=== PATIENT | female | born 1970 ===

== ENCOUNTER → 2023-06-11 | Day surgery (SDC) | payer BC ==
--- NOTE | 2023-06-11 12:10 | RAD REPORT ---
EXAM DESCRIPTION: US - Breast Core BX w/US Guidance - 06/11/2023 10:40 am CLINICAL HISTORY: ICD R 92.8 /N63.10 COMPARISON: Outside ultrasound TECHNIQUE: The risks, benefits alternatives to the procedure were explained to the patient and infor med consent obtained. The patient was told him that there is an increased risk of breast implant rupt ure as the mass abuts the implant. Skin, subcutaneous and breast tissues anesthetized with lidocaine. Under sonographic guidance, 17 gauge needle placed into the mass within the upper-outer quadrant righ t breast. Four 18 gauge needle passes were then obtained through this. 2 centimeter core specimens ob tained Tissue given to pathology. Patient experienced no immediate complication IMPRESSION: Core biopsies right breast mass
== END ==
LOC: DS 09:34
PROVIDERS: ATTEND Physician Assistant
DX: C50.911 Malignant neoplasm of unspecified site of right female breast (principal); Z17.0 Estrogen receptor positive status [ER+]
CPT/HCPCS: 19083; 88305

== ENCOUNTER 2024-06-01 06:19 | Emergency (ER) | payer BC, OTHER ==
--- OUTSIDE RECORDS SUMMARY | 2024-06-01 06:26 | XMS REPORT | Clinical Summary ---
Author Name Unknown Organization [facility] [place] Address [address] [place] [address] Care Team Providers Care Boot Liner Maker Name Role Phone Yesenia Tracy MD Primary Care Prov ider Cheyanne Crawford MD Unavailable [phone] [facility] Unavailable [phone] MerRodolfo vásquez MD Unavailable [phone] Allergies No known active allergies Medications Medication Sig Dispensed Refills Start Date End Date Status zolpidem (AMBIEN CR) 12.5 mg CR tablet Take 1 tablet (12.5 mg) by mouth at bedtime. Active buPROPion (WELLBUTRIN XL) 150 mg 24 hr tablet Take 1 tablet (150 mg) by mouth twice daily. Active ALPRAZolam (XANAX) 0.5 mg tablet Take 1 tablet (0.5 mg) by mouth 3 (three) times a day. 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 50 tablet 2 3 Active albuterol (VENTOLIN HFA,PROAIR HFA) 90 mcg/puff inhaler Inhale 1-2 puffs by mouth every 4 (four) hours as needed. 3 Active 25/iron fum/folic/dha (-1 ORAL) Take 1 tablet by mouth daily. Garden of life Active thymol/chloroph yllin (CHLOROPHYLL ORAL) Take 1 Dose by mouth daily. 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 40 tablet 4 Active gabapentin (NEURONTIN) 300 mg capsule Take 1 capsule (300 mg) by mouth 3 (three) times a day. 4 Active escitalopram (LEXAPRO) 10 mg tablet Take 1 tablet (10 mg) by mouth daily. Active cyclobenzaprine (FLEXERIL) 10 mg tablet Take 1 tablet (10 mg) by mouth 3 (three) times a day. 4 Active cyanocobalamin, vitamin B-12, 1,000 mcg cap 1 tablet Orally Once a day Active b complex vitamins tablet Take 1 tablet by mouth daily. Active lidocaine (XYLOCAINE) 20 mg/mL (2%) viscous solutionIndicat ions:Infiltrati ng duct carcinoma of right female breast Swish and swallow 10 mL every 8 (eight) hours as needed (sore throat). 100 mL 1 4 Active Additional Information Patient not taking.Reported on 05/25/2024 xyloxylin oral suspension (AMB-CMPD)Indic ations:Infiltra ting duct carcinoma of right female breast Swish and swallow 15 mL 4 (four) times a day before meals and nightly. 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 3 tabs QAM and 3 tabs QPM x 14 days, then none x 7 days. 84 tablet 2 4 Active Effexor XR 75 mg 24 hr capsule Take 1 capsule every day by oral route for 90 days. 3 01/01/20 24 Discontinued(Dis continued by another clinician) fluticasone propionate-salm eterol (ADVAIR) 250 mcg-50 mcg/inhalation diskus inhaler Inhale 1 puff by mouth twice daily. 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 30 tablet 4 02/21/20 24 Discontinued(Reo rder) cefadroxil (DURICEF) 500 mg capsuleIndicati ons:Acquired absence of bilateral breasts Take 1 capsule (500 mg) by mouth twice daily for 14 days. 28 capsule 4 03/13/20 24 cefadroxil (DURICEF) 500 mg capsuleIndicati ons:Acquired absence of right breast and nipple,Infiltra ting duct carcinoma of right female breast Take 1 capsule (500 mg) by mouth twice daily for 7 days. 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 (Primary Dx) 05/26/2024 Orders Only [facility] [place] - Medical Oncology [address] [place] [address], 5th [place] [address] Kaylie Yu, PharmD 05/25/2024 8:30 AM CDT Clinical Support MD [facility] in [place] - Radiation Oncology [address] [place] [address] [address] [place] [address] Estrellita Stroud MD 05/25/2024 Orders Only MD [facility] [place] - Medical Oncology [address] [place] [address] [address] [place] [address] Paul Merritt, BALLISTICS TEACHER 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 (Primary Dx) 05/25/2024 Travel 05/19/2024 Orders Only MD [facility] [place] - Radiation Oncology [address] [place] [address] [address] [place] [address] Lillian Xiao APRN 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 (Primary Dx) 05/19/2024 Travel 05/18/2024 8:30 AM CDT Clinical Support MD [facility] [place] - Radiation Oncology [address] [place] [address] [address] [place] [address] Estrellita Stroud MD Shah, Shalin, MD 05/15/2024 Travel 05/12/2024 8:45 AM CDT Infusion MD [facility] [place] - Infusion [address] [place] [address] [address] [place] [address] Paul Merritt, Alisson Evans, RN 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 (Primary Dx) 05/12/2024 7:30 AM CDT Clinical Support MD [facility] [place] - Infusion [address] [place] [address] [address] [place] [address] Yesenia Tracy MD Mendoza, Gina B, KAMERON 05/11/2024 8:30 AM CDT Clinical Support MD [facility] [place] - Radiation Oncology [address] [place] [address] Estrellita Stroud MD 05/11/2024 Travel 05/07/2024 8:30 AM CDT Clinical Support MD [facility] [place] - Radiation Oncology [address] [place] [address] Estrellita Stroud MD 05/07/2024 [facility] [address] [facility] Main [facility], 6th [place] [address] Letty Hawkins PA 05/06/2024 2:30 PM CDT Clinical Support MD [facility] [address] 4th [place] [address] Yesenia Tracy MD 05/06/2024 12:00 PM CDT Telemedicine Endocrine Center [address] [facility] Main Bl, 6th [place] [address] Letty Hawkins PA 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] (Primary Dx) 05/06/2024 Travel 05/06/2024 Telephone MD [facility] [place] - Genetics [address] [place] [address] [address] [place] [address] Nivia Smith I Genetic Testing 05/01/2024 Travel 04/29/2024 Orders Only MD [facility] [place] - Breast Medical Oncology [address] [place] [address] [address] [place] [address] Amber Henry MD 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 (Primary Dx); Fatigue; Antineoplastic chemotherapy induced anemia 04/21/2024 7:30 AM CDT Clinical Support MD [facility] [place] [facility] Infusion [address] [place] [address] [address] [place] [address] Yesenia Tracy MD Momin, Romina A, KAMERON 04/21/2024 Orders Only MD [facility] [place] - Breast Medical Oncology [address] [place] [address] [address] [place] [address] Melissa Farrar PA 04/21/2024 Orders Only MD [facility] [place] - Breast Medical Oncology [address] [place] [address] [address] [place] [address] Amber Henry MD 04/21/2024 Travel 04/20/2024 8:30 AM CDT Clinical Support MD [facility] [place] - Radiation Oncology [address] [place] [address] Estrellita Stroud MD 04/20/2024 Travel 04/17/2024 Travel 04/16/2024 Orders Only Breast Center - Medical Oncology [address] [facility], 5th [place] [address] Amber Henry MD 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 (Primary Dx) 04/16/2024 Travel 04/15/2024 Travel 04/14/2024 Travel 04/13/2024 8:30 AM CDT Clinical Support MD [facility] [place] - Radiation Oncology [address] [place] [address] Estrellita Stroud MD 04/13/2024 Travel 04/07/2024 6:00 AM CDT - 04/07/2024 11:59 PM CDT Hospital Encounter [facility] [address] [place] [address] Main Bldg near Elevator [place] [id number] Yesenia Tracy MD Discharge Disposition: Home 04/06/2024 6:00 AM CDT - 04/06/2024 11:59 PM CDT Hospital Encounter Radiation Treatment Center [facility] Main Bldg near Elevator [place] [id number] Yesenia Tracy MD Discharge Disposition: Home 04/06/2024 Documentation MD [facility] [place] - Radiation Oncology [address] [place] [address] Estrellita Stroud MD 04/06/2024 Travel 04/03/2024 Documentation MD [facility] [place] - Radiation Oncology [address] [place] [address] [address] [place] [address] Estrellita Stroud MD 03/31/2024 2:00 PM CDT Infusion MD [facility] [place] [facility] Infusion [address] [place] [address] [address] [place] [address] Erik Torres MD Russell, Laura W, RN 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 (Primary Dx) 03/31/2024 1:30 PM CDT Clinical Support MD [facility] [place] [facility] Infusion [address] [place] [address] [address] [place] [address] Yesenia Tracy MD John, Beena, KAMERON 03/31/2024 Orders Only MD [facility] [place] - Medical Oncology [address] [place] [address] [address] [place] [address] Paul Merritt APRN 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 (Primary Dx) 03/31/2024 Travel 03/31/2024 Orders Only MD [facility] [place] - Medical Oncology [address] [place] [address] [address] [place] [address] Kecia Martinez, RN 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 (Primary Dx) 03/27/2024 8:30 AM CDT [facility] [address] [place] [address], 5th [place] [address] Rodolfo Felix MD Acquired absence of right breast and nipple; 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 03/27/2024 Documentation MD [facility] in [place] - Radiation Oncology [address] [place] [address] [address] [place] [address] Estrellita Stroud MD 03/27/2024 Travel 03/24/2024 9:40 AM CDT Follow-Up MD [facility] [place] - Breast Medical Oncology [address] [place] [address] [address] [place] [address] Amber Henry MD 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 (Primary Dx); Anxiety state; Fatigue; 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; Antineoplastic chemotherapy induced anemia 03/24/2024 9:00 AM CDT Clinical Support MD [facility] [place] [facility] Infusion [address] [place] [address] [address] [place] [address] Yesenia Tracy MD Jones, Ashley D, RN 03/24/2024 Travel 03/19/2024 11:00 AM CDT Ancillary Procedure MD [facility] [place] [facility] Radiation Oncology [address] [place] [address] Estrellita Stroud MD 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 03/19/2024 Documentation MD [facility] [place] [facility] Radiation Oncology [address] [place] [address] Estrellita Stroud MD 03/19/2024 Documentation MD [facility] [place] [facility] Radiation Oncology [address] [place] [address] Estrellita Stroud MD 03/19/2024 Documentation MD [facility] [place] [facility] Radiation Oncology [address] [place] [address] Estrellita Stroud MD 03/19/2024 Travel 03/18/2024 11:15 AM CDT [facility]Up [facility] [address] [place] [address], 5th [place] [address] Rodolfo Felix MD Acquired absence of right breast and nipple (Primary Dx); 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 03/18/2024 9:00 AM CDT Consult MD [facility] [place] [facility] Radiation Oncology [address] [place] [address] Estrellita Stroud MD 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 03/18/2024 Travel 03/17/2024 Orders Only MD [facility] [place] [facility] Radiation Oncology [address] [place] [address] Estrellita Stroud MD 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 (Primary Dx) 03/13/2024 Orders Only [facility] [address] [facility], 5th [place] [address] William Galvan PA 03/12/2024 11:00 AM CDT Telemedicine MD [facility] - Breast Medical Oncology [address] 3[address] [place] [address] Erik Torres MD 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 (Primary Dx) 03/10/2024 9:00 AM CDT Office Visit MD [facility] [place] - Breast Surgery Oncology [address] [place] [address] Yesenia Tracy MD 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 03/10/2024 Travel 03/06/2024 10:00 AM CDT Office Visit [facility] [address] [place] [address], 5th [place] [address] Rodolfo Felix MD Acquired absence of right breast (Primary Dx) 03/06/2024 Orders Only MD [facility] [place] - Breast Surgery Oncology [address] [place] [address] Little Piña PA 03/06/2024 Travel 02/27/2024 2:35 PM CDT Anesthesia Event MAIN OR [address] [place] [address] Sunni Hopson MD Heir, Jagtar Singh, 02/27/2024 1:45 PM CDT - 02/27/2024 11:59 PM CDT Hospital Encounter Breast Imaging [address] [facility], 5th [place] [address] Little Piña PA Discharge Disposition: Home 02/27/2024 11:50 AM CDT - 02/27/2024 7:50 PM CDT Surgery MAIN OR [address] [place] [address] Yesenia Tracy MD SKIN SPARING TOTAL MASTECTOMY 02/27/2024 9:30 AM CDT - 02/28/2024 2:03 PM CDT Hospital Encounter MAIN PACU [address] [facility] Main [facility], 5th [place] [address] Yesenia Tracy MD Acquired absence of bilateral breasts (Primary Dx); 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 Discharge Disposition: Home 02/27/2024 Travel 02/21/2024 Orders Only Endocrine Center [address] [place] [address] Main [facility], 6th [place] [address] Letty Hawkins PA 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 02/20/2024 Orders Only MD [facility] [place] - Medical Oncology [address] [place] [address] Paul Merritt APRN 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 02/18/2024 Refill MD [facility] [place] - Breast Medical Oncology [address] [place] [address] [address] [place] [address] Paul Merritt APRN 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 02/15/2024 Refill MD [facility] [place] - Breast Medical Oncology [address] [place] [address] [address] [place] [address] Paul Merritt APRN 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 02/11/2024 9:23 AM CDT Anesthesia Event [facility] [address] [place] [address], 6th [place] [address] Sandra Multani APRN 02/10/2024 Travel 02/05/2024 4:00 PM CDT Telemedicine Endocrine [facility] [address] [place] [address] Main [facility], 6th [place] [address] Marc Josue APRN Williams, Jessica, PA 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] (Primary Dx); 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 02/05/2024 11:00 AM CDT POEM Appointments [facility] [address] [place] [address] Main [facility], 6th [place] [address] Little Piña PA 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 02/05/2024 9:54 AM CDT - 02/05/2024 11:59 PM CDT Hospital Encounter Diagnostic Laboratory Center [address] [place] [address] Erik Torres MD 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 Discharge Disposition: Home 02/05/2024 9:30 AM CDT Consult [facility] [address] [facility], 5th [place] [address] Rodolfo Felix MD 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 02/05/2024 Travel 01/29/2024 Telephone MD [facility] Breast Medical Oncology [address] [address] [facility] 3rd [place] [address] Erik Torres MD 01/29/2024 Orders Only MD [facility] - Breast Medical Oncology [address] [address] [facility] 3rd [place] [address] Erik Torres MD 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 (Primary Dx) 01/28/2024 1:30 PM CDT Office Visit MD [facility] [place] - Breast Surgery Oncology [address] [place] [address] Yesenia Tracy MD 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 01/28/2024 Travel 01/27/2024 2:00 PM CDT Ancillary Procedure Diagnostic Imaging in [facility] [address] [facility] [address], [address] [place] [address] Yesenia Tracy MD 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 01/27/2024 9:30 AM CDT Ancillary Procedure Diagnostic Imaging in [facility] [address] [facility] [address], [address] [place] [address] Yesenia Tracy MD 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 01/01/2024 7:37 AM BOBBIN COLLECTOR - 01/01/2024 11:59 PM BOBBIN COLLECTOR Hospital Encounter Diagnostic Laboratory Center [address] [place] [address], [place] [address] Brenda Farrar, BALLISTICS TEACHER Encounter for screening for other suspected endocrine disorder Discharge Disposition: Home 01/01/2024 Travel 12/25/2023 3:30 PM BOBBIN COLLECTOR Clinical [place] [address] Yesenia Tracy MD John, Beena, RN 12/25/2023 9:15 AM BOBBIN COLLECTOR Infusion MD [facility] [place] - Infusion [address] [place] [address] [address] [place] [address] Amber Henry MD Castro, Sheila O, RN 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 (Primary Dx) 12/25/2023 8:40 AM BOBBIN COLLECTOR Follow-Up MD [facility] [place] - Breast Medical Oncology [address] [place] [address] Amber Henry MD 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 (Primary Dx); Fatigue; Hypothyroidism, not otherwise specified; Anxiety state 12/25/2023 Orders Only Endocrine Center [facility], 6th [place] [address] Brenda Farrar, BALLISTICS TEACHER Encounter for screening for other suspected endocrine disorder (Primary Dx) 12/25/2023 Travel 12/20/2023 Orders Only MD [facility] [place] - Medical Oncology [address] [place] [address] Paul Merritt APRN 12/04/2023 10:00 AM BOBBIN COLLECTOR Infusion MD [facility] in [place] - [address] [address] Amber Henry MD Jacob, Saly, RN 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 (Primary Dx) 12/04/2023 9:40 AM BOBBIN COLLECTOR Follow-Up MD [facility] [place] - Breast Medical Oncology [address] [place] [address] Amber Henry MD 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 12/04/2023 8:30 AM BOBBIN COLLECTOR Clinical Support MD [facility] [place] - Infusion [address] [place] [address] Yesenia Tracy MD Villaruel, Rosario L, RN 12/04/2023 Travel 11/13/2023 3:30 PM BOBBIN COLLECTOR Clinical Support MD [facility] [place] - Infusion [address] [place] [address] Yesenia Tracy MD Jones, Ashley D, RN 11/13/2023 2:15 PM BOBBIN COLLECTOR Infusion MD [facility] [place] - Infusion [address] [place] [address] Paul Merritt APRN Eliff, Melinda S, RN 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 Medical Oncology [address] [place] [address] Paul Merritt APRN 11/06/2023 Orders Only Breast Center - Medical Oncology [address] [facility], 5th [place] [address] Solomon Montes De Oca, Erin 11/05/2023 12:30 PM BOBBIN COLLECTOR Infusion MD [facility] [place] - Infusion [address] [place] [address] Paul Merritt APRN Pakeltis, Melody J, RN Febrile neutropenia (Primary Dx) 11/05/2023 8:40 AM BOBBIN COLLECTOR Follow-Up MD [facility] Medical Oncology [address] [place] [address] Amber Henry MD 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 (Primary Dx); Febrile neutropenia; Fatigue 11/05/2023 Travel 11/04/2023 6:40 PM BOBBIN COLLECTOR - 11/04/2023 8:50 PM BOBBIN COLLECTOR Emergency [facility], 1st Floor near [place] [place] [address] Tony Culver MD Infiltrating duct carcinoma of breast <Right side> (Primary Dx); Cough Discharge Disposition: Home 11/04/2023 10:14 AM BOBBIN COLLECTOR - 11/04/2023 6:39 PM BOBBIN COLLECTOR Hospital Encounter [facility] [address] [facility] Main Bldg, [place] [address] Paul Merritt APRN 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 Discharge Disposition: Home 11/04/2023 9:34 AM BOBBIN COLLECTOR - 11/04/2023 10:13 AM BOBBIN COLLECTOR Hospital Encounter [facility] [address] [facility] Main dg, Elevator A [place] [id number] Melissa Farrar PA 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 Discharge Disposition: Home 11/04/2023 8:47 AM BOBBIN COLLECTOR - 11/04/2023 9:33 AM BOBBIN COLLECTOR Hospital Encounter Cardiopulmonary Center [address] [facility] Main dg, 6th Floor Elevator C [place] [id number] Amber Henry MD 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 Discharge Disposition: Home 11/04/2023 Telephone MD [facility] [place] - Medical Oncology [address] [place] [address] 200 [place] [address] Paul Merritt APRN 11/04/2023 Orders Only MD [facility] [place] - Medical Oncology [address] [place] [address] 200 [place] [address] Paul Merritt APRN Febrile neutropenia (Primary Dx) 11/04/2023 Travel 10/30/2023 Orders Only MD [facility] [place] - Breast Surgery Oncology [address] [place] [address] Little Piña PA 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 (Primary Dx) 10/30/2023 Prep for Surgery MD [facility] [place] - Breast Surgery Oncology [address] [place] [address] Little Piña PA 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 (Primary Dx) 10/25/2023 1:30 PM BOBBIN COLLECTOR Infusion MD [facility] [place] - Infusion [address] [place] [address] 200 [place] [address] Paul Merritt APRN Rodil, Virginia C, RN 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 (Primary Dx) 10/25/2023 11:30 AM BOBBIN COLLECTOR Clinical Support MD [facility] [place] - Infusion [address] [facility] [address] [place] [address] Yesenia Tracy MD Venegas, Carrie A, RN 10/25/2023 11:00 AM BOBBIN COLLECTOR Follow-Up MD [facility] [place] - Breast Surgery Oncology [address] [place] [address] Yesenia Tracy MD 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 10/25/2023 8:00 AM BOBBIN COLLECTOR Ancillary Procedure Diagnostic Imaging in [facility] [address] [place] [address] 1, [address] [place] [address] 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 10/25/2023 Orders Only MD [facility] [place] - Breast Medical Oncology [address] [place] [address] 200 [place] [address] Melissa Farrar PA 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 (Primary Dx) 10/25/2023 Travel 10/18/2023 9:30 AM BOBBIN COLLECTOR Infusion MD [facility] [place] - Infusion [facility] [address] [address] Paul Merritt APRN 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 (Primary Dx) 10/18/2023 Travel 10/11/2023 9:00 AM BOBBIN COLLECTOR Infusion MD [facility] [place] - Infusion [facility] [address] [address] Paul Merritt APRN 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 (Primary Dx) 10/11/2023 8:40 AM BOBBIN COLLECTOR Telemedicine MD [facility] [place] - Breast Medical Oncology [address] [place] [address] [address] [place] [address] Amber Henry MD 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 (Primary Dx); Fatigue; Anxiety state 10/11/2023 Orders Only MD [facility] [place] - Breast Surgery Oncology [address] [place] [address] Little Piña PA 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 (Primary Dx) 10/11/2023 Orders Only Breast Center - Medical Oncology [address] [facility], 5th [place] [address] Kirk Zeng MD 10/11/2023 Travel 10/04/2023 12:30 PM BOBBIN COLLECTOR Infusion MD Manuel [place] - Infusion [address] [place] [address] Paul Merritt APRN 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 (Primary Dx) 10/04/2023 Travel 09/30/2023 Orders Only MD [facility] [place] - Medical Oncology [address] [facility] [address] [place] [address] Pual Merritt APRN 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 (Primary Dx) 09/30/2023 Orders Only MD [facility] [place] - Breast Medical Oncology [address] [facility] [address] [place] [address] Amber Henry MD 09/27/2023 10:00 AM BOBBIN COLLECTOR Infusion MD Manuel [place] - Infusion [address] [place] [address] Paul Merritt APRN 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 (Primary Dx) 09/27/2023 Travel 09/23/2023 3:30 PM BOBBIN COLLECTOR Clinical Support MD [facility] [place] - Infusion [address] [place] [address] Yesenia Tracy MD 09/23/2023 Travel 09/23/2023 Orders Only MD [facility] [place] - Medical Oncology [address] [place] [address] 200 [place] [address] Paul Merritt APRN 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 (Primary Dx) 09/20/2023 7:19 AM BOBBIN COLLECTOR - 09/20/2023 11:59 PM BOBBIN COLLECTOR Hospital Encounter Ambulatory Treatment Center - Main Building [address] [facility], 2nd Floor, [place] [address] Paul Merritt APRN Cao, Thuyhang C, RN 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 Discharge Disposition: Home 09/20/2023 6:45 AM BOBBIN COLLECTOR - 09/20/2023 7:18 AM BOBBIN COLLECTOR Hospital Encounter Diagnostic Laboratory Center [facility] [address], [place] [address] Paul Merritt APRN 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 Discharge Disposition: Home 09/20/2023 Refill MD [facility] [place] - Medical Oncology [address] [place] [address] Paul Merritt APRN 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 09/20/2023 Travel 09/13/2023 3:00 PM BOBBIN COLLECTOR Clinical Support MD [facility] [place] - Infusion [address] [place] [address] Yesenia Tracy MD Russell, Laura W RN 09/13/2023 1:30 PM BOBBIN COLLECTOR Infusion MD [facility] [place] - Infusion [address] [place] [address] 200 [place] [address] Paul Merritt APRN Jones, Ashley D, RN 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 (Primary Dx) 09/13/2023 11:40 AM BOBBIN COLLECTOR Follow-Up MD [facility] [place] - Breast Medical Oncology [address] [place] [address] Amber Henry MD 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 (Primary Dx); Anxiety state; Fatigue 09/13/2023 Travel 09/12/2023 Orders Only MD [facility] [place] - Medical Oncology [address] [place] [address] 200 [place] [address] Paul Merritt APRN 09/06/2023 10:15 AM BOBBIN COLLECTOR Infusion MD [facility] [place] - Infusion [address] [place] [address] Amber Henry MD 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 (Primary Dx) 09/06/2023 Travel 2023 9:45 AM CDT Infusion MD [place] - Infusion [address] [place] [address] Amber Henry MD 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 (Primary Dx) 2023 Travel 08/23/2023 11:30 AM CDT Infusion MD [facility] in [facility] [address] [place] [address] 200 [place] [address] Amber Henry MD Landicho, Michael S, RN 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 (Primary Dx) 08/23/2023 9:40 AM CDT Follow-Up MD [facility] [place] - Breast Medical Oncology [address] [place] [address] 200 [place] [address] Amber Henry MD 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 (Primary Dx) 08/23/2023 8:30 AM CDT Clinical Support MD [facility] [place] - [address] [place] [address] Yesenia Tracy MD Villaruel, Rosario L, RN 08/23/2023 Travel 08/18/2023 Telephone [facility] KRISTEN PHYSICIAN [address] [place] [address] Janny Reynolds, plant operations vice president Call 08/16/2023 10:00 AM CDT Infusion MD Manuel [place] - Infusion [address] [address] Paul Merritt APRN 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 (Primary Dx) 08/16/2023 Orders Only MD [facility] [place] - Breast Medical Oncology [address] [place] [address] Amber Henry MD 08/16/2023 Orders Only MD [facility] [place] - Medical Oncology [address] [place] [address] 200 [place] [address] Paul Merritt APRN 08/16/2023 Travel 08/15/2023 2:30 PM CDT - 08/15/2023 11:59 PM CDT Hospital Encounter MD [facility] [address] [place] [address] Yesenia Tracy MD Parrish, Jennifer, PA-C Surgical incision wound of skin (Primary Dx) Discharge Disposition: Home 08/12/2023 12:30 PM CDT Clinical Support MD [facility] [place] - Genetics [address] [facility] 200 [place] [address] Yesenia Tracy MD Shilbauer, Rachael I 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 requested another call tomorrow./August 05, 2023 at 2:42 PM//Kelli Jarvis/Kirsten smallwood is having problems opening the text and the email. 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 (Primary Dx) 08/06/2023 11:00 AM CDT Nutrition Clinical Nutrition For your Nutrition appointment location directions please call: Yesenia Tracy MD Rodgers, Beverly B, DEX 08/04/2023 Telephone [facility] PHYSICIAN [address] [place] [address] Diana Rodriguez, plant operations vice president Call 08/02/2023 10:30 AM CDT Infusion MD [facility] [place] - Infusion [address] [place] [address] Amber Henry MD 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 (Primary Dx) 08/02/2023 Orders Only MD [facility] [place] - Breast Medical Oncology [address] [place] [address] 200 [place] [address] Amber Henry MD 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 (Primary Dx) 08/02/2023 Orders Only MD [facility] [place] - Medical Oncology [address] [place] [address] Paul Merritt APRN 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 (Primary Dx) 08/02/2023 Travel 08/01/2023 8:49 AM CDT Anesthesia Event [facility] [address] [place] [address] Jarret Manuel MD Foltermann, Stephanie L, CRNA 08/01/2023 6:46 AM CDT - 08/01/2023 11:59 PM CDT Hospital Encounter [facility] [address] [place] [address] Paul Merritt APRN Foltermann, Stephanie L, CRNA Idowu, Olakunle, MD Lu, Thomas, MD 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 Discharge Disposition: Home 08/01/2023 Travel 07/31/2023 11:59 PM CDT Anesthesia Event [facility] [address] [place] [address], 6th [place] [address] Tamara Madrid APRN 07/31/2023 4:30 PM CDT POEM Appointments [facility] [address] [place] [address], 6th [place] [address] Kimmie Mcdowell PA Encounter for other preprocedural examination (Primary Dx) 07/31/2023 10:06 AM CDT - 07/31/2023 11:59 PM CDT Hospital Encounter MD [facility] [address] [place] [address] Yesenia Tracy MD Hoang, Bao Tran, PA 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 (Primary Dx); Encounter for preprocedural examination Discharge Disposition: Home 07/31/2023 Orders Only MD [facility] [place] - Medical Oncology [address] [place] [address] Paul Merritt APRN 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 (Primary Dx) 07/31/2023 Travel 07/30/2023 [facility] MD [facility] [address] [place] [address] Noah Garcia MA 07/26/2023 12:30 PM CDT - 07/26/2023 11:59 PM CDT Hospital Encounter Cardiopulmonary Center [address] [place] [address], 6th [place] [address] Paul Merritt APRN 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 Discharge Disposition: Home 07/26/2023 Travel 07/23/2023 11:40 AM CDT Telephone MD [facility] [place] - Breast Medical Oncology [address] [place] [address] Amber Henry MD 07/23/2023 Orders Only MD [facility] [place] - Medical Oncology [address] [place] [address] Paul Merritt APRN 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 (Primary Dx) 07/23/2023 Orders Only MD [facility] [place] - Breast Medical Oncology [address] [place] [address] Amber Henry MD 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 (Primary Dx) 07/22/2023 Orders Only Main Interventional Radiology [address] [facility], 3rd [place] [address] Kimmie Mcdowell PA 07/18/2023 Orders Only MD [facility] [place] - Medical Oncology [address] [place] [address] Paul Merritt APRN 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 (Primary Dx) 07/17/2023 12:00 PM CDT Consult MD [facility] [place] - [facility] Medical Oncology [address] [place] [address] Dalia Baldwin MD Nwosu-Iheme, Adaeze, MD 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 (Primary Dx); Anxiety state; Fatigue; Tobacco dependence caused by cigarettes 07/17/2023 Travel 07/15/2023 Documentation MD [facility] [place] - Breast Surgery Oncology [address] [place] [address] Yesenia Tracy MD 07/11/2023 2:30 PM CDT Ancillary Procedure MD Manuel [address] [address] Little Piña PA 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 07/11/2023 Travel 07/10/2023 Documentation MD [facility] [address] [address] [facility] Mike RN 07/09/2023 1:00 PM CDT Office Visit MD [facility] [place] - Breast Surgery Oncology [address] [place] [address] Yesenia Tracy MD 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 (Primary Dx) 07/09/2023 12:00 PM CDT NPR [facility] PATIENT ACCESS Yesenia Tracy MD 07/09/2023 Travel 07/08/2023 12:00 PM CDT Ancillary Procedure Diagnostic Imaging in [address], [address] [place] [address] Mammography abnormal 07/08/2023 9:15 AM CDT Ancillary Procedure Diagnostic Imaging in [address], [address] [place] [address] Little Piña, PA Mammography abnormal 07/08/2023 8:15 AM CDT Ancillary Procedure Diagnostic Imaging in [address], [address] [place] [address] Little Piña, CHICO Mammography abnormal 06/28/2023 2:32 PM CDT - 06/28/2023 11:59 PM CDT Hospital Encounter Sarbjit Echeverria MD Discharge Disposition: Home 06/26/2023 12:24 PM CDT - 06/26/2023 11:59 PM CDT Hospital Encounter Sarbjit Echeverria MD Discharge Disposition: Home 06/21/2023 8:15 PM CDT Ancillary Procedure [facility] [address] [place] [address] Yesenia Tracy MD Cancer 06/21/2023 8:10 PM CDT Ancillary Procedure [facility] [address] [place] [address] Yesenia Tracy MD Cancer 06/21/2023 8:05 PM CDT Ancillary Procedure [facility] [address] [place], [place] [id number] Yesenia Tracy MD Cancer 06/21/2023 8:00 PM CDT Ancillary Procedure [facility] [address] [place] [address] Yesenia Tracy MD Cancer 06/21/2023 Lab Requisition [facility] Andrzej Granda MD Witson, Anne S., MD 06/18/2023 Orders Only MD [facility] [place] - Breast Surgery Oncology [address] [place] [address] Little Piña PA Mammography abnormal (Primary Dx) after 06/02/2023 Surgical History Surgery Date Site/Laterality Comments AUGMENTATION MAMMAPLASTY W/PROSTHETIC IMPLANT 10/28/2018 - 10/27/2019 Bilateral DENTAL SURGERY all teeth were removed and replaced with dentures BUNIONECTOMY 10/28/1999 - 10/27/2000 Bilateral GA MASTECTOMY SIMPLE COMPLETE 02/27/2024 Breast/Right Procedure: SKIN SPARING TOTAL MASTECTOMY; Surgeon: Yesenia Tracy MD; Location: MAIN OR; Service: BREAST Medical devices from this surgery are in the Medical Devices section. GA AXILLARY LYMPHADENECTOMY COMPLETE 02/27/2024 Axilla/Right Procedure: AXILLARY LYMPHADENECTOMY; Surgeon: Yesenia Tracy MD; Location: MAIN OR; Service: BREAST Medical devices from this surgery are in the Medical Devices section. GA TISSUE GEOLOGY ASSOCIATE PLACEMENT BREAST RECONSTRUCTION 02/27/2024 Breast/Right Procedure: RECONSTRUCTION OF BREAST WITH TISSUE GEOLOGY ASSOCIATE; Surgeon: Rodolfo Felix MD; Location: MAIN OR; Service: PLS - PLASTIC SURGERY Medical devices from this surgery are in the Medical Devices section. GA REPAIR BLOOD VESSEL DIRECT UPPER EXTREMITY 02/27/2024 Axilla/Right Procedure: SUTURE OR PATCH CLOSURE OF BLOOD VESSEL OF UPPER EXTREMITY; Surgeon: Rodolfo Felix MD; Location: MAIN OR; Service: PLS - PLASTIC SURGERY Medical devices from this surgery are in the Medical Devices section. Medical History Medical History Date Comments Menopause 07/12/2014 About 9 years ag o Anxiety Maybe started in my 20's Malignant tumor of breast 06/14/2023 When i was told i had cancer Family History Medical History Relation Name Comments Hypothyroidism Cousin Prostate cancer Maternal Grandfather Colon cancer Maternal Uncle 1 Prostate cancer Maternal Uncle 2 Relation Name Status Comments Cousin Alive Father No contact Half-Brother 1 (Age 30s) Half-Brother 2 Alive Half-Sister 1 (Age 50s) Half-Sister 2 Alive Half-Sister 3 Alive Maternal Aunt 1 Alive Maternal Aunt 2 Alive Maternal Aunt 3 Alive Maternal Aunt 4 Alive Maternal Aunt 5 Alive Maternal Grandfather (Age 80s) Maternal Grandmother (Age 80s) d . natural causes Maternal Uncle 1 Alive Maternal Uncle 2 Alive Maternal Uncle 3 Alive Maternal Uncle 4 Alive Maternal Uncle 5 Alive Maternal Uncle 6 Alive Mother Alive maybe LISSETH/BSO Social History Tobacco Use Types Packs/Day Years Used Date Smoking Tobacco: Former Cigarettes 0.5 37.9 S tarted: 06/28/1986 Passive Smoke Exposure: Past Smokeless Tobacco: Never Tobacco Cessation:Ready to Q uit: Not Asked; Counseling Given: Not Answered Comments:Smoked since i was 16 Alcohol Use Standard Drinks/Week Comments Yes 49 (1 standard drink = 0.6 oz pu re alcohol) Sex and Gender Information Value Date Recorded Sex Assigned at Female 06/19/2023 6:26 PM CDT Gender Identity Female 06/19/2023 6:26 PM CDT Sexual Orientation Straight 06/19/2023 6: 26 PM CDT Job Start Date Occupation Industry Not on file Not on file Not on file Obstetrics History Para Term AB IAB SAB Ectopic Multiple Livin g Live Births 1 1 Date Outcome GA Total Labor Labor/2nd/3rd Weight Sex Type Anes PTL Kiya A1 A5 Name Clin AB Comments A1 Menarche: 14 yo OCP 20 yrs HRT: None Menopausal Last menses @ 44 yo Last Filed Vital Signs Vital Sign Reading Time Taken Comments Blood Pressure 106/82 05/26/2024 8:28 AM CDT Pulse 104 05/26/2024 8:28 AM CDT Temperature 37 C (98.6 F) 05/26/2024 8:28 AM CDT Respiratory Rate 18 05/26/2024 8:28 AM CDT Oxygen Saturation 100% 04/21/2024 8:56 AM CDT Inhaled Oxygen Concentration - - Weight 45.9 kg (101 lb 3.1 oz) 05/26/2024 8:28 A M CDT Height 152.5 cm (5' 0.04") 02/27/2024 10:59 PM C DT Body Mass Index 19.74 02/27/2024 10:59 PM CDT Plan of Treatment Upcoming Encounters Date Type Department Care Team (Late st Contact Info) Description 06/02/2024 9:30 AM CDT Lab MD [facility] [place] - Diagnostic Laboratory Center [address] [place] [address] 201 [place] [address] Utp, Joma, BALLISTICS TEACHER [address] [place] [address] [email or web address] 06/02/2024 10:15 AM CDT Infusion MD [facility] in [place] - Infusion [address] [place] [address] 200 [place] [address] [facility], Cierrama, BALLISTICS TEACHER [address] [place] [address] [email or web address] 06/23/2024 9:15 AM CDT Lab MD Jackson [facility] Diagnostic Laboratory Center [address] [place] [address] 201 [place] [address] [facility] Center[facility] appiah, BALLISTICS TEACHER [address] [place] [address] [email or web address] 06/23/2024 9:40 AM CDT Follow-Up MD [facility] in [place] - Breast Medical Oncology [address] [place] [address] 200 [place] [address] Amber Henry MD [address] [place] [address] [email or web address] 06/23/2024 10:15 AM CDT Infusion MD [facility] [place] - Infusion [address] [place] [address] [address] [place] [address] [facility] CenterCierra appiahma, BALLISTICS TEACHER [address] [place] [address] [email or web address] 07/14/2024 9:00 AM CDT Lab MD [facility] Diagnostic Laboratory Center [address] [place] [address] 201 [place] [address] Paul Merritt, BALLISTICS TEACHER [address] [place] [address] [email or web address] 07/14/2024 9:40 AM CDT Follow-Up MD [facility] [place] - Breast Medical Oncology [address] [facility] [address] [place] [address] Amber Henry MD [address] [place] [address] [email or web address] 07/14/2024 10:15 AM CDT Infusion MD [facility] [place] - Infusion [address] [facility] [address] [place] [address] Paul Merritt, BALLISTICS TEACHER [address] [place] [address] [email or web address] 09/18/2024 8:30 AM BOBBIN COLLECTOR Clinical Support [facility] [address] [facility], 5th [place] [address] William Galvan PA [address] [place] [address] [email or web address] 09/18/2024 8:45 AM BOBBIN COLLECTOR Follow-Up [facility] for [facility] [address] [facility], 5th [place] [address] Rodolfo Felix MD [address] [place] [address] [email or web address] 10/27/2024 10:05 AM BOBBIN COLLECTOR Ancillary Procedure Diagnostic Imaging in [facility] [address] [facility] [address], [address] [place] [address] Little Piña PA [facility] [place], [place] [phone] [email or web address] 10/27/2024 1:00 PM BOBBIN COLLECTOR Follow-Up MD [facility] in [place] - Breast Surgery Oncology [address] [place] [address] Yesenia Tracy MD [facility] [place], [place] [id number] [email or web address] Little Piña PA [facility] [place], [place] [id number] [email or web address] Health Maintenance Due Date Last Done Comments COVID-19 Vaccine (#1) 1974 Influenza Vaccine 06/28/2024 Medical Devices Implanted Type Area Library Science Instructor Device Identifier Shelf Expiration Date Model / Serial / Lot Full Height Breast Tissue Smooth Traffic Personnel Supervisor W Suture Tabs 500cc - 13.0x13.5x5. 7cm - [id number] Implanted:Qt y: 1 on 02/27/2024 by Rdoolfo Felix MD at [facility] Breast Right: Breast [employer] 05/19/2028 [id number] 3-T / [id number] / [id number] [place], Clearvue Slim 8fr - [id number] Implanted:Qt y: 1 on 08/01/2023 by Geoffrey Gómez PA at [facility] Implant Left: Chest Wall BARD PERIPHERAL VASCULAR [id number] 03/27/2025 [id number] / / [id number] Matrix Tiss 92q40km Aldrm Slct - Sn/A Implanted:Qt y: 1 on 02/27/2024 by Rodolfo Felix MD at [facility] Skin/Tissu e Right: Breast [employer] 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 PHOSPHORUS LEVEL Routine 05/12/2024 7:35 AM CDT 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 MAGNESIUM LEVEL Routine 05/12/2024 7:35 AM CDT 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 COMPLETE BLOOD COUNT W/ DIFFERENTIAL Routine 05/12/2024 7:35 AM CDT 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 COMPREHENSIVE METABOLIC PANEL Routine 05/12/2024 7:35 AM CDT 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 THYROID STIMULATING HORMONE Routine 05/06/2024 2:34 PM CDT 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] FREE THYROXINE Routine 05/06/2024 2:34 PM CDT 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] DIFFERENTIAL Routine 04/21/2024 7:28 AM CDT 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 .CBC Routine 04/21/2024 7:28 AM CDT 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 PHOSPHORUS LEVEL Routine 04/21/2024 7:28 AM CDT 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 MAGNESIUM LEVEL Routine 04/21/2024 7:28 AM CDT 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 COMPLETE BLOOD COUNT W/ DIFFERENTIAL Routine 04/21/2024 7:28 AM CDT 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 COMPREHENSIVE METABOLIC PANEL Routine 04/21/2024 7:28 AM CDT 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 .CBC Routine 03/31/2024 1:21 PM CDT 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 COMPREHENSIVE METABOLIC PANEL Routine 03/31/2024 1:21 PM CDT 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 COMPLETE BLOOD COUNT W/ DIFFERENTIAL Routine 03/31/2024 1:21 PM CDT 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 .CBC Routine 03/24/2024 8:13 AM CDT 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 THYROID STIMULATING HORMONE Routine 03/24/2024 8:13 AM CDT 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 FREE THYROXINE Routine 03/24/2024 8:13 AM CDT 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 TRIIODOTHYRONINE Routine 03/24/2024 8:13 AM CDT 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 PHOSPHORUS LEVEL Routine 03/24/2024 8:13 AM CDT 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 MAGNESIUM LEVEL Routine 03/24/2024 8:13 AM CDT 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 COMPLETE BLOOD COUNT W/ DIFFERENTIAL Routine 03/24/2024 8:13 AM CDT 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 COMPREHENSIVE METABOLIC PANEL Routine 03/24/2024 8:13 AM CDT 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 CT BREAST SIMULATION WITHOUT CONTRAST Routine 03/19/2024 11:28 AM CDT 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 TISSUE EXPANSION Routine 03/18/2024 12:55 PM CDT Acquired absence of right breast and nipple 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 TISSUE EXPANSION Routine 03/06/2024 10:30 AM CDT Acquired absence of right breast PATHOLOGY SURGICAL INTERPRETATION Routine 02/27/2024 3:47 PM CDT 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 GA REPAIR BLOOD VESSEL DIRECT UPPER EXTREMITY 02/27/2024 2:09 PM CDT 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 Special Needs MTL@1000 GA TISSUE GEOLOGY ASSOCIATE PLACEMENT BREAST RECONSTRUCTION 02/27/2024 2:09 PM CDT 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 Special Needs MTL@1000 GA AXILLARY LYMPHADENECTOMY COMPLETE 02/27/2024 2:09 PM CDT 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 Special Needs MTL@1000 GA MASTECTOMY SIMPLE COMPLETE 02/27/2024 2:09 PM CDT 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 Special Needs MTL@1000 BREAST SPECIMEN RADIOGRAPH Routine 02/27/2024 1:45 PM CDT DIFFERENTIAL Routine 02/24/2024 9:49 AM CDT 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 .CBC Routine 02/24/2024 9:49 AM CDT 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 COMPLETE BLOOD COUNT W/ DIFFERENTIAL Routine 02/24/2024 9:49 AM CDT 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 THYROID STIMULATING HORMONE Routine 02/10/2024 8:48 AM CDT 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] FREE THYROXINE Routine 02/10/2024 8:48 AM CDT 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] .CBC Routine 02/05/2024 10:13 AM CDT 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 TYPE AND SCREEN Routine 02/05/2024 10:13 AM CDT 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 COMPLETE BLOOD COUNT W/ DIFFERENTIAL Routine 02/05/2024 10:13 AM CDT 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 US CHEST Routine 01/27/2024 11:40 AM CDT 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 US BREAST COMPLETE RIGHT Routine 024 11:40 AM CDT 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 .CBC Routine 01/27/2024 10:27 AM CDT 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 THYROID STIMULATING HORMONE Routine 01/27/2024 10:27 AM CDT 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 FREE THYROXINE Routine 01/27/2024 10:27 AM CDT 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 NICOTINE LEVEL Routine 01/27/2024 10:27 AM CDT 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 HEMOGLOBIN A1C Routine 01/27/2024 10:27 AM CDT 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 COMPREHENSIVE METABOLIC PANEL Routine 01/27/2024 10:27 AM CDT 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 COMPLETE BLOOD COUNT W/ DIFFERENTIAL Routine 01/27/2024 10:27 AM CDT 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 MAMMO DIGITAL DIAGNOSTIC RIGHT W VIVEK Routine 01/27/2024 9:30 AM CDT 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 DIFFERENTIAL Routine 01/15/2024 7:37 AM CDT 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 .CBC Routine 01/15/2024 7:37 AM CDT 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 CORTISOL, TOTAL Routine 01/15/2024 7:37 AM CDT 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 PHOSPHORUS LEVEL Routine 01/15/2024 7:37 AM CDT 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 MAGNESIUM LEVEL Routine 01/15/2024 7:37 AM CDT 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 COMPLETE BLOOD COUNT W/ DIFFERENTIAL Routine 01/15/2024 7:37 AM CDT 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 COMPREHENSIVE METABOLIC PANEL Routine 01/15/2024 7:37 AM CDT 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 CORTISOL, TOTAL Routine 01/01/2024 7:54 AM BOBBIN COLLECTOR Encounter for screening for other suspected endocrine disorder ADRENOCORTICOTROPIC HORMONE Routine 01/01/2024 7:54 AM BOBBIN COLLECTOR Encounter for screening for other suspected endocrine disorder DIFFERENTIAL Routine 12/25/2023 7:54 AM BOBBIN COLLECTOR 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 .CBC Routine 12/25/2023 7:54 AM BOBBIN COLLECTOR 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 THYROID STIMULATING HORMONE Routine 12/25/2023 7:54 AM BOBBIN COLLECTOR 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 FREE THYROXINE Routine 12/25/2023 7:54 AM BOBBIN COLLECTOR 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 TRIIODOTHYRONINE Routine 12/25/2023 7:54 AM BOBBIN COLLECTOR 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 PHOSPHORUS LEVEL Routine 12/25/2023 7:54 AM BOBBIN COLLECTOR 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 MAGNESIUM LEVEL Routine 12/25/2023 7:54 AM BOBBIN COLLECTOR 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 COMPLETE BLOOD COUNT W/ DIFFERENTIAL Routine 12/25/2023 7:54 AM BOBBIN COLLECTOR 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 COMPREHENSIVE METABOLIC PANEL Routine 12/25/2023 7:54 AM BOBBIN COLLECTOR 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 DIFFERENTIAL Routine 12/04/2023 9:08 AM BOBBIN COLLECTOR 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 .CBC Routine 12/04/2023 9:08 AM BOBBIN COLLECTOR 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 PHOSPHORUS LEVEL Routine 12/04/2023 9:08 AM BOBBIN COLLECTOR 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 MAGNESIUM LEVEL Routine 12/04/2023 9:08 AM BOBBIN COLLECTOR 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 COMPLETE BLOOD COUNT W/ DIFFERENTIAL Routine 12/04/2023 9:08 AM BOBBIN COLLECTOR 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 COMPREHENSIVE METABOLIC PANEL Routine 12/04/2023 9:08 AM BOBBIN COLLECTOR 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 DIFFERENTIAL Routine 11/13/2023 9:27 AM BOBBIN COLLECTOR Febrile neutropenia .CBC Routine 11/13/2023 9:27 AM BOBBIN COLLECTOR Febrile neutropenia COMPLETE BLOOD COUNT W/ DIFFERENTIAL Routine 11/13/2023 9:27 AM BOBBIN COLLECTOR Febrile neutropenia COMPREHENSIVE METABOLIC PANEL Routine 11/13/2023 9:27 AM BOBBIN COLLECTOR Febrile neutropenia XR CHEST 1 VW Routine 11/04/2023 6:55 PM BOBBIN COLLECTOR RESPIRATORY MULTIPLEX PCR PANEL, NASOPHARYNGEAL SWAB Routine 11/04/2023 6:48 PM BOBBIN COLLECTOR HISTORICAL ABORH Routine 11/04/2023 11:15 AM BOBBIN COLLECTOR 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 DIFFERENTIAL Routine 11/04/2023 10:33 AM BOBBIN COLLECTOR 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 .CBC Routine 11/04/2023 10:33 AM BOBBIN COLLECTOR 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 CORTISOL, TOTAL Routine 11/04/2023 10:33 AM BOBBIN COLLECTOR 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 THYROID STIMULATING HORMONE Routine 11/04/2023 10:33 AM BOBBIN COLLECTOR 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 FREE THYROXINE Routine 11/04/2023 10:33 AM BOBBIN COLLECTOR 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 TRIIODOTHYRONINE Routine 11/04/2023 10:33 AM BOBBIN COLLECTOR 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 PHOSPHORUS LEVEL Routine 11/04/2023 10:33 AM BOBBIN COLLECTOR 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 MAGNESIUM LEVEL Routine 11/04/2023 10:33 AM BOBBIN COLLECTOR 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 COMPLETE BLOOD COUNT W/ DIFFERENTIAL Routine 11/04/2023 10:33 AM BOBBIN COLLECTOR 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 COMPREHENSIVE METABOLIC PANEL Routine 11/04/2023 10:33 AM BOBBIN COLLECTOR 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 TYPE AND SCREEN Routine 11/04/2023 10:33 AM BOBBIN COLLECTOR 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 ECHOCARDIOGRAM 2D COMPLETE Routine 11/04/2023 9:32 AM BOBBIN COLLECTOR 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 PREPARE RBC Routine 10/25/2023 1:42 PM BOBBIN COLLECTOR 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 DIFFERENTIAL Routine 10/25/2023 11:39 AM BOBBIN COLLECTOR 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 MDA CP PLASMF Routine 10/25/2023 11:39 AM BOBBIN COLLECTOR 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 .CBC Routine 10/25/2023 11:39 AM BOBBIN COLLECTOR 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 COMPLETE BLOOD COUNT W/ DIFFERENTIAL Routine 10/25/2023 11:39 AM BOBBIN COLLECTOR 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 CREATININE Routine 10/25/2023 11:33 AM BOBBIN COLLECTOR 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 BLOOD UREA NITROGEN Routine 10/25/2023 11:33 AM BOBBIN COLLECTOR 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 US CHEST Routine 10/25/2023 9:33 AM BOBBIN COLLECTOR 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 US BREAST COMPLETE RIGHT Routine 023 9:33 AM BOBBIN COLLECTOR 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 DIFFERENTIAL Routine 10/18/2023 9:02 AM BOBBIN COLLECTOR 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 MDA CP PLASMF Routine 10/18/2023 9:02 AM BOBBIN COLLECTOR 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 .CBC Routine 10/18/2023 9:02 AM BOBBIN COLLECTOR 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 CREATININE Routine 10/18/2023 9:02 AM BOBBIN COLLECTOR 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 BLOOD UREA NITROGEN Routine 10/18/2023 9 :02 AM BOBBIN COLLECTOR 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 COMPLETE BLOOD COUNT W/ DIFFERENTIAL Routine 10/18/2023 9:02 AM BOBBIN COLLECTOR 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 DIFFERENTIAL Routine 10/11/2023 7:15 AM BOBBIN COLLECTOR 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 MDA CP PLASMF Routine 10/11/2023 7:15 AM BOBBIN COLLECTOR 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 .CBC Routine 10/11/2023 7:15 AM BOBBIN COLLECTOR 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 PHOSPHORUS LEVEL Routine 10/11/2023 7:15 AM BOBBIN COLLECTOR 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 MAGNESIUM LEVEL Routine 10/11/2023 7:15 AM BOBBIN COLLECTOR 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 COMPLETE BLOOD COUNT W/ DIFFERENTIAL Routine 10/11/2023 7:15 AM BOBBIN COLLECTOR 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 COMPREHENSIVE METABOLIC PANEL Routine 10/11/2023 7:15 AM BOBBIN COLLECTOR 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 DIFFERENTIAL Routine 10/04/2023 10:13 AM BOBBIN COLLECTOR 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 MDA CP PLASMF Routine 10/04/2023 10:13 AM BOBBIN COLLECTOR 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 .CBC Routine 10/04/2023 10:13 AM BOBBIN COLLECTOR 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 COMPLETE BLOOD COUNT W/ DIFFERENTIAL Routine 10/04/2023 10:13 AM BOBBIN COLLECTOR 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 COMPREHENSIVE METABOLIC PANEL Routine 10/04/2023 10:13 AM BOBBIN COLLECTOR 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 DIFFERENTIAL Routine 09/27/2023 9:22 AM BOBBIN COLLECTOR 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 MDA CP PLASMF Routine 09/27/2023 9:22 AM BOBBIN COLLECTOR 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 .CBC Routine 09/27/2023 9:22 AM BOBBIN COLLECTOR 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 CREATININE Routine 09/27/2023 9:22 AM BOBBIN COLLECTOR 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 BLOOD UREA NITROGEN Routine 09/27/2023 9 :22 AM BOBBIN COLLECTOR 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 COMPLETE BLOOD COUNT W/ DIFFERENTIAL Routine 09/27/2023 9:22 AM BOBBIN COLLECTOR 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 DIFFERENTIAL Routine 09/20/2023 7:09 AM BOBBIN COLLECTOR 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 .CBC Routine 09/20/2023 7:09 AM BOBBIN COLLECTOR 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 CREATININE Routine 09/20/2023 7:09 AM BOBBIN COLLECTOR 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 BLOOD UREA NITROGEN Routine 09/20/2023 7 :09 AM BOBBIN COLLECTOR 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 COMPLETE BLOOD COUNT W/ DIFFERENTIAL Routine 09/20/2023 7:09 AM BOBBIN COLLECTOR 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 .CBC Routine 09/13/2023 10:34 AM BOBBIN COLLECTOR 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 THYROID STIMULATING HORMONE Routine 09/13/2023 10:34 AM BOBBIN COLLECTOR 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 FREE THYROXINE Routine 09/13/2023 10:34 AM BOBBIN COLLECTOR 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 PHOSPHORUS LEVEL Routine 09/13/2023 10:34 AM BOBBIN COLLECTOR 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 MAGNESIUM LEVEL Routine 09/13/2023 10:34 AM BOBBIN COLLECTOR 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 COMPLETE BLOOD COUNT W/ DIFFERENTIAL Routine 09/13/2023 10:34 AM BOBBIN COLLECTOR 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 COMPREHENSIVE METABOLIC PANEL Routine 09/13/2023 10:34 AM BOBBIN COLLECTOR 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 DIFFERENTIAL Routine 09/06/2023 9:23 AM BOBBIN COLLECTOR 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 .CBC Routine 09/06/2023 9:23 AM BOBBIN COLLECTOR 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 CREATININE Routine 09/06/2023 9:23 AM BOBBIN COLLECTOR 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 BLOOD UREA NITROGEN Routine 09/06/2023 9 :23 AM BOBBIN COLLECTOR 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CBC Routine 08/23/2023 8:04 AM CDT 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 PHOSPHORUS LEVEL Routine 08/23/2023 8:04 AM CDT 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 MAGNESIUM LEVEL Routine 08/23/2023 8:04 AM CDT 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 COMPLETE BLOOD COUNT W/ DIFFERENTIAL Routine 08/23/2023 8:04 AM CDT 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 COMPREHENSIVE METABOLIC PANEL Routine 08/23/2023 8:04 AM CDT 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 .GLOMERULAR FILTRATION RATE Routine 08/16/2023 9:56 AM CDT 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 SERUM CREATININE Routine 08/16/2023 9:56 AM CDT 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 DIFFERENTIAL Routine 08/16/2023 9:56 AM CDT 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 .CBC Routine 08/16/2023 9:56 AM CDT 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 CREATININE Routine 08/16/2023 9:56 AM CDT 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 BLOOD UREA NITROGEN Routine 08/16/2023 9 :56 AM CDT 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 COMPLETE BLOOD COUNT W/ DIFFERENTIAL Routine 08/16/2023 9:56 AM CDT 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 .GLOMERULAR FILTRATION RATE Routine 08/09/2023 9:49 AM CDT 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 SERUM CREATININE Routine 08/09/2023 9:49 AM CDT 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 DIFFERENTIAL Routine 08/09/2023 9:49 AM CDT 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 .CBC Routine 08/09/2023 9:49 AM CDT 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 CREATININE Routine 08/09/2023 9:49 AM CDT 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 BLOOD UREA NITROGEN Routine 08/09/2023 9 :49 AM CDT 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 COMPLETE BLOOD COUNT W/ DIFFERENTIAL Routine 08/09/2023 9:49 AM CDT 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 DIFFERENTIAL Routine 08/02/2023 8:40 AM CDT 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 .CBC Routine 08/02/2023 8:40 AM CDT 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 FRACTIONATED BILIRUBIN Routine 8:40 AM CDT 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 TOTAL PROTEIN Routine 08/02/2023 8:40 AM CDT 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 ASPARTATE AMINOTRANSFERASE Routine 08/02/2023 8:40 AM CDT 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 ALANINE AMINOTRANSFERASE Routine 8:40 AM CDT 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 ALKALINE PHOSPHATASE Routine 08/02/2023 8:40 AM CDT 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 ALBUMIN LEVEL Routine 08/02/2023 8:40 AM CDT 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 CALCIUM LEVEL Routine 08/02/2023 8:40 AM CDT 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 .GLOMERULAR FILTRATION RATE Routine 08/02/2023 8:40 AM CDT 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 SERUM CREATININE Routine 08/02/2023 8:40 AM CDT 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 ELECTROLYTE PANEL Routine 08/02/2023 8:4 0 AM CDT 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 BLOOD UREA NITROGEN Routine 08/02/2023 8 :40 AM CDT 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 GLUCOSE LEVEL Routine 08/02/2023 8:40 AM CDT 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 CORTISOL, TOTAL Routine 08/02/2023 8:40 AM CDT 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 THYROID STIMULATING HORMONE Routine 08/02/2023 8:40 AM CDT 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 FREE THYROXINE Routine 08/02/2023 8:40 AM CDT 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 PHOSPHORUS LEVEL Routine 08/02/2023 8:40 AM CDT 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 MAGNESIUM LEVEL Routine 08/02/2023 8:40 AM CDT 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 COMPLETE BLOOD COUNT W/ DIFFERENTIAL Routine 08/02/2023 8:40 AM CDT 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 COMPREHENSIVE METABOLIC PANEL Routine 08/02/2023 8:40 AM CDT 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 IR FL PORT PLACEMENT 75 Routine 08/01/20 9:42 AM CDT 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 EKG, 12-LEAD (PORTABLE) Routine 08/01/2023 CONFIRM ABORH TYPE Routine 07/31/2023 11:17 AM CDT TMP INTERPRETATION ANTIBODY SCREEN NEGATIVE Routine 07/31/2023 10:57 AM CDT CLOT EXPIRATION DATE Routine 07/31/2023 10:57 AM CDT ANION GAP Routine 07/31/2023 10:57 AM CDT ANTIBODY SCREEN Routine 07/31/2023 10:57 AM CDT ABORH Routine 07/31/2023 10:57 AM CDT .GLOMERULAR FILTRATION RATE Routine 07/31/2023 10:57 AM CDT SERUM CREATININE Routine 07/31/2023 10:57 AM CDT DIFFERENTIAL Routine 07/31/2023 10:57 AM CDT .CBC Routine 07/31/2023 10:57 AM CDT TYPE AND SCREEN Routine 07/31/2023 10:57 AM CDT GLUCOSE, RANDOM Routine 07/31/2023 10:57 AM CDT PROTHROMBIN TIME Routine 07/31/2023 10:57 AM CDT BLOOD UREA NITROGEN Routine 07/31/2023 10:57 AM CDT CREATININE Routine 07/31/2023 10:57 AM CDT POTASSIUM LEVEL Routine 07/31/2023 10:57 AM CDT SODIUM LEVEL Routine 07/31/2023 10:57 AM CDT CHLORIDE LEVEL Routine 07/31/2023 10:57 AM CDT CARBON DIOXIDE LEVEL Routine 07/31/2023 10:57 AM CDT COMPLETE BLOOD COUNT W/ DIFFERENTIAL Routine 07/31/2023 10:57 AM CDT ECHOCARDIOGRAM 2D COMPLETE Routine 07/26/2023 2:28 PM CDT 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 PETCT F18 FDG (FLUORODEOXYGLUCOSE) WITH CONTRAST Routine 07/11/2023 3:30 PM CDT 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 FRACTIONATED BILIRUBIN Routine 2:35 PM CDT 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 TOTAL PROTEIN Routine 07/09/2023 2:35 PM CDT 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 ASPARTATE AMINOTRANSFERASE Routine 07/09/2023 2:35 PM CDT 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 ALANINE AMINOTRANSFERASE Routine 2:35 PM CDT 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 ALKALINE PHOSPHATASE Routine 07/09/2023 2:35 PM CDT 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 ALBUMIN LEVEL Routine 07/09/2023 2:35 PM CDT 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 CALCIUM LEVEL Routine 07/09/2023 2:35 PM CDT 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 .GLOMERULAR FILTRATION RATE Routine 07/09/2023 2:35 PM CDT 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 SERUM CREATININE Routine 07/09/2023 2:35 PM CDT 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 ELECTROLYTE PANEL Routine 07/09/2023 2:3 5 PM CDT 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 BLOOD UREA NITROGEN Routine 07/09/2023 2 :35 PM CDT 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 GLUCOSE LEVEL Routine 07/09/2023 2:35 PM CDT 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 DIFFERENTIAL Routine 07/09/2023 2:35 PM CDT 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 .CBC Routine 07/09/2023 2:35 PM CDT 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 COMPREHENSIVE METABOLIC PANEL Routine 07/09/2023 2:35 PM CDT 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 COMPLETE BLOOD COUNT W/ DIFFERENTIAL Routine 07/09/2023 2:35 PM CDT 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 MAMMO POST PROCEDURE RIGHT Routine 07/08/2023 12:13 PM CDT Mammography abnormal US GUIDED AXILLARY LYMPH NODE FNA RIGHT Routine 07/08/2023 11:58 AM CDT Mammography abnormal US GUIDED BREAST CLIP PLACEMENT RIGHT Routine 07/08/2023 11:58 AM CDT Mammography abnormal US HEAD NECK SOFT TISSUE Routine 023 11:58 AM CDT Mammography abnormal US BREAST COMPLETE BILATERAL Routine 07/08/2023 11:58 AM CDT Mammography abnormal US CHEST Routine 07/08/2023 11:58 AM CDT Mammography abnormal CYTOLOGY IMAGE-GUIDED FNA INTERPRETATION Routine 07/08/2023 10:56 AM CDT Mammography abnormal MAMMO DIGITAL DIAGNOSTIC BILATERAL W VIVEK Routine 07/08/2023 8:49 AM CDT Mammography abnormal HP CG HER2 FISH INTERPRETATION AND REPORT Routine 06/11/2023 12:54 PM CDT HP CYTOGENETICS BLOOD COLLECTION Routine 06/11/2023 12:54 PM CDT PATHOLOGY OUTSIDE INTERPRETATION Routine 06/11/2023 after 06/02/2023 Results * (ABNORMAL) .CBC (05/12/2024 7:35 AM CDT) Only the most recent of27 resultswithin the time period is included. White Blood Cell 6.4 4.1 - 10.5 K/uL 05/12/2024 8:08 AM CDT [place] Comment:This result was prev iously suppressed from the chart. Red Blood Cell 3.86(L) 3.99 - 5.46 M/uL 05/12/2024 8:08 AM CDT [place] Comment:This result was prev iously suppressed from the chart. Hemoglobin 12.7 12.2 - 15.3 g/dL 05/12/2024 8:08 AM CDT [place] Comment:This result was prev iously suppressed from the chart. Hematocrit 39.9 36.4 - 46.8 % 05/12/2024 8:08 AM CDT [place] Comment:This result was prev iously suppressed from the chart. Mean Cell Volume 103(H) 82 - 99 fL 05/12/2024 8:08 AM CDT [place] Comment:This result was prev iously suppressed from the chart. Mean Cell Hemoglobin 32.9 26.6 - 33.2 pg 05/12/2024 8:08 AM CDT [place] Comment:This result was prev iously suppressed from the chart. Mean Cell Hemoglobin Concentration 31.8 31.1 - 35.2 g/dL 05/12/2024 8:08 AM CDT [place] Comment:This result was prev iously suppressed from the chart. RDW-SD 53.8(H) 37.5 - 49.7 fL 05/12/2024 8:08 AM CDT [place] Comment:This result was prev iously suppressed from the chart. Red Cell Diameter Width 14.4 11.6 - 15.5 % 05/12/2024 8:08 AM CDT [place] Comment:This result was prev iously suppressed from the chart. Platelet 271 160 - 397 K/uL 05/12/2024 8:08 AM CDT [place] Comment:This result was prev iously suppressed from the chart. Mean Platelet Volume 9.9 9.1 - 12.6 fL 05/12/2024 8:08 AM CDT [place] Comment:This result was prev iously suppressed from the chart. Blood Peripheral blood specimen / Unknown Port / Unknown 05/12/2024 7:35 AM CDT 05/12/2024 7:42 AM CDT Paul Merritt APRN LAB BLOOD ORDERABLES [facility] [address], [address] [place] [address] * (ABNORMAL) Comprehensive Metabolic Panel (05/12/2024 7:35 AM CDT) Only the most recent of14 resultswithin the time period is included. Bilirubin Total 0.3 0.0 - 1.2 mg/dL 05/12/2024 8:10 AM CDT [facility] Comment:Indocyanine Green (I CG) may cause falsely elevated bilirubin results. Total and direct bilirubin must not be measured from samples containing indocyanine green. False elevation of total bilirubin can be seen in patients with IgG concentrations above 28 g/L. eGFR 103 >=60 mL/min/1. 73 sq. m 05/12/2024 8:10 AM CDT [facility] Comment: The eGFRcr is calculated with the 2020 CKD-EPI creatinine equation using creatinine, patient's age, and sex for adults 18 years of age and older. Other factors, especially muscle mass, may affect accuracy and need to be considered. According to the Kidney Disease: Improving Global Outcomes (KDIGO) CKD Work Group 2012 Clinical Practice Guideline, chronic kidney disease (CKD) is defined as the abnormalities of kidney structure or function, present for more than 3 months, with implications for health. CKD should be classified by cause, GFR category, and albuminuria category. KDIGO guidelines provide the following GFR categories. Stage / Description / GFR mL/min/1.73 m2: G1* / Normal or high / >= 90 G2* / Mildly decreased / 60-89 G3a / Mildly to moderately decreased / 45-59 G3b / Moderately to severely decreased / 30-44 G4 / Severely decreased / 15-29 G5 / Kidney failure / <15 *In the absence of evidence of kidney damage, neither G1 nor G2 fulfill criteria for CKD. Tot Protein 6.7 6.4 - 8.3 gm/dL 05/12/2024 8:10 AM CDT [place] Calcium Level Total 9.5 8.2 - 10.2 mg/dL 05/12/2024 8:10 AM CDT [place] Alkaline Phosphatase 104 35 - 104 U/L 05/12/2024 8:10 AM CDT [place] Albumin Level 4.0 3.5 - 5.2 gm/dL 05/12/2024 8:10 AM CDT [place] AST 19 <=32 U/L 05/12/2024 8:10 AM CDT [place] ALT 13 <=33 U/L 05/12/2024 8:10 AM CDT [place] Sodium Level 139 136 - 145 mmol/L 05/12/2024 8:10 AM CDT [place] Potassium Level 4.3 3.4 - 4.5 mmol/L 05/12/2024 8:10 AM CDT [place] Chloride 104 98 - 107 mmol/L 05/12/2024 8:10 AM CDT [place] CO2 26 22 - 29 mmol/L 05/12/2024 8:10 AM CDT [place] Anion Gap 9 4 - 14 mmol/L 05/12/2024 8:10 AM CDT [place] Creatinine 0.69 0.51 - 0.95 mg/dL 05/12/2024 8:10 AM CDT [place] BUN 9 6 - 23 mg/dL 05/12/2024 8:10 AM CDT [place] Glucose Level 123(H) 70 - 99 mg/dL 05/12/2024 8:10 AM CDT [place] Comment: Effective 05/23/16, the glucose reference intervals have been updated based on [place] [employer] guidelines (Standards of Medical Care in Diabetes 2016. Diabetes Care 2016; 39: S13-S22). Fasting blood glucose: Normal: 70-99 mg/dL Impaired fasting glucose (increased risk for diabetes or pre-diabetes): 100-125 mg/dL Diabetes mellitus: >/=126 mg/dL Random blood glucose: Normal: 70-199 mg/dL Note: Random glucose >100 mg/dL is associated with increased risk for diabetes. Blood Peripheral blood specimen / Unknown Port / Unknown 05/12/2024 7:35 AM CDT 05/12/2024 7:42 AM CDT Joma Uthup B[employer]IST[employer] TEACHER LAB BLOOD ORDERABLES [place] [facility] [place] [address], [address] [place] [address] * (ABNORMAL) Differential (05/12/2024 7:35 AM CDT) Only the most recent of21 resultswithin the time period is included. Total Cells 100 05/12/2024 8:08 AM CDT [place] Manual Neutrophil % 70.0 43.2 - 72.7 % 05/12/2024 8:08 AM CDT [place] Comment:The Neutrophil count includes Bands. Manual Lymphocyte % 14.0(L) 16.8 - 46.2 % 05/12/2024 8:08 AM CDT [place] Manual Monocyte % 9.0 5.1 - 12.5 % 05/12/2024 8:08 AM CDT [place] Manual Eosinophil % 6.0 0.4 - 6.3 % 05/12/2024 8:08 AM CDT [place] Manual Basophil % 1.0 0.2 - 1.4 % 05/12/2024 8:08 AM CDT [place] Metamyelocyte % 8:08 AM CDT [place] Comment:The Metamyelocyte co unt includes Myelocytes. Manual Neutrophil Abs 4.48 1.95 - 7.25 K/uL 05/12/2024 8:08 AM CDT [place] Manual Lymphocyte Abs 0.90(L) 1.01 - 3.24 K/uL 05/12/2024 8:08 AM CDT [place] Manual Monocyte Abs 0.58 0.24 - 0.85 K/uL 05/12/2024 8:08 AM CDT [place] Manual Eosinophil Abs 0.38 0.02 - 0.50 K/uL 05/12/2024 8:08 AM CDT [place] Manual Basophil Abs 0.06 0.02 - 0.09 K/uL 05/12/2024 8:08 AM CDT [place] RBC Morphology PRESENT 05/12/2024 8:08 AM CDT [place] PLT Morph Normal Normal 05/12/2024 8:08 AM CDT [place] Anisocytosis Present(A) (none) 05/12/2024 8:08 AM CDT [place] Blood Peripheral blood specimen / Unknown Port / Unknown 05/12/2024 7:35 AM CDT 05/12/2024 7:42 AM CDT Paul Merritt APRN LAB BLOOD ORDERABLES Performing Organization Address City/[facility]/ZIP Co de Phone Number [address], [address] [place] [address] * T3 (05/12/2024 7:35 AM CDT) Only the most recent of4 resultswithin the time period is included. Triiodothyronine 114 80 - 200 ng/dL 05/12/2024 8:23 AM CDT [facility] Blood Peripheral blood specimen / Unknown Port / Unknown 05/12/2024 7:35 AM CDT 05/12/2024 7:42 AM CDT Paul Merritt [facility] LAB BLOOD ORDERABLES Performing Organization Address [facility]/ZIP Co de Phone Number [address], [address] [address] * (ABNORMAL) TSH (05/12/2024 7:35 AM CDT) Only the most recent of9 resultswithin the time period is included. Thyroid Stimulating Hormone 4.22(H) 0.27 - 4.20 mcunit/mL 05/12/2024 8:23 AM CDT [facility] Blood Peripheral blood specimen / Unknown Port / Unknown 05/12/2024 7:35 AM CDT 05/12/2024 7:42 AM CDT Paul Merritt APRN LAB BLOOD ORDERABLES Performing Organization Address City/[facility]/ZIP Co de Phone Number [address], [address] [place] [phone] * (ABNORMAL) Free T4 (05/12/2024 7:35 AM CDT) Only the most recent of9 resultswithin the time period is included. T4 (Thyroxine) Free 1.91(H) 0.93 - 1.70 ng/dL 05/12/2024 8:23 AM CDT [facility] Blood Peripheral blood specimen / Unknown Port / Unknown 05/12/2024 7:35 AM CDT 05/12/2024 7:42 AM CDT [facility] [employer] [facility] LAB BLOOD ORDERABLES [address], [address] [place] [address] * Phosphorus Level (05/12/2024 7:35 AM CDT) Only the most recent of11 resultswithin the time period is included. Phosphorus Level 4.0 2.5 - 4.5 mg/dL 05/12/2024 8:10 AM CDT [facility] Blood Peripheral blood specimen / Unknown Port / Unknown 05/12/2024 7:35 AM CDT 05/12/2024 7:42 AM CDT [facility] [employer] [facility] LAB BLOOD ORDERABLES Performing Organization Address City/[facility]/ZIP Co de Phone Number [address], [address] [place] [phone] * Magnesium Level (05/12/2024 7:35 AM CDT) Only the most recent of11 resultswithin the time period is included. Magnesium Level 2.0 1.6 - 2.6 mg/dL 05/12/2024 8:10 AM CDT [facility] Blood Peripheral blood specimen / Unknown Port / Unknown 05/12/2024 7:35 AM CDT 05/12/2024 7:42 AM CDT [facility] [employer] [facility] LAB BLOOD ORDERABLES Performing Organization Address City/[facility]/ZIP Co de Phone Number [address], [address] [place] [address] * CT Breast Simulation without Contrast - Initial (03/19/2024 11:28 AM CDT) Narrative Systemgenerated, Documentation - 03/19/2024 11:28 AM CDT This procedure requires no interpretation from the radiologist. Estrellita Stroud MD IMG RO CT SIM ORDERA BLES * TISSUE EXPANSION (03/18/2024 12:55 PM CDT) Narrative William Galvan PA - 03/18/2024 12:55 PM CDT William Galvan PA 03/18/2024 4:53 PM Tissue expansion: Right Breast - Right Prepectoral Pre-Procedure: - [place] Protocol (Time-out) performed. Procedure Details: - The patient was placed in the supine position at 45 degrees. - The tissue security services manager ports were located utilizing manual palpation and a magnafinder. - The area was prepped utilizing chlorhexidine. - A 21G butterfly needle was introduced into the site. Right Breast: - Prior to the procedure, the cumulative volume in the tissue security services manager is 350 cc. - 0 cc of air and 0 cc of saline was removed from the security services manager. - 75 cc of saline was infused today. - Post-procedural volume is 425 cc. Post-Procedure: - The needle was withdrawn and sterile dressing was applied. - The patient was sat in the upright position and denied significant discomfort. - Capillary refill was noted to be intact. - The procedure was tolerated well and there were no complications noted. William GOLDEN PROCEDURE/MINOR SURG ICAL ORDERABLES * TISSUE EXPANSION (03/06/2024 10:30 AM CDT) Narrative Emily Temple PA-C - 03/06/2024 10:30 AM CDT Emily Temple PA-C 03/09/2024 10:06 AM Tissue expansion: Right Breast - Right Prepectoral Procedure Details: - The patient was placed in the supine position at 45 degrees. - The tissue security services manager ports were located utilizing manual palpation and a magnafinder. - The area was prepped utilizing chlorhexidine. - A 23G butterfly needle was introduced into the site. Right Breast: - 340 cc of air was removed from the security services manager. - 350 cc of saline was infused today. - Post-procedural volume is 350 cc. Post-Procedure: - The needle was withdrawn and sterile dressing was applied. - The patient was sat in the upright position and denied significant discomfort. - Capillary refill was noted to be intact. - The procedure was tolerated well and there were no complications noted. 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 B: Right breast, skin sparing mastectomy: RESIDUAL INVASIVE AND IN SITU DUCTAL CARCINOMA WITH THERAPY EFFECT. RESIDUAL CARCINOMA PRESENT IN THE 62 X 46 MM TREATED TUMOR BED WITH 2% OVERALL TUMOR CELLULARITY. LYMPHOVASCULAR INVASION PRESENT. THE IN SITU COMPONENT COMPRISES ABOUT 1% OF TUMOR. Surgical margins are free of tumor. INVASIVE CARCINOMA IS 1 MM TO THE NEAREST SUPERIOR AND INFERIOR SUPERFICIAL MARGINS. Uninvolved breast parenchyma shows proliferative fibrocystic change. Nipple, no tumor present. C: Right axillary contents, level 1 and 2, lymph node dissection: MACROMETASTATIC CARCINOMA WITH THERAPY EFFECT PRESENT 6, MICROMETASTATIC CARCINOMA PRESENT IN 2 AND ISOLATED TUMOR CELLS (ITC) PRESENT IN 1 OUT OF 12 LYMPH NODES. THE LARGEST VIABLE METASTATIC FOCUS MEASURES 6 MM. No extranodal extension present. 03/05/2024 11:27 AM CDT [facility] Synoptic Checklist INVASIVE CARCINOMA OF THE BREAST: Resection INVASIVE CARCINOMA OF THE BREAST: RESECTION - All Specimens 8th Edition - Protocol posted: 07/17/2023 SPECIMEN Procedure: Total mastectomy Specimen Laterality: Right TUMOR Histologic Type: Invasive carcinoma of no special type (ductal) Histologic Grade (Tiffanie Histologic Score): Glandular (Acinar) / Tubular Differentiation: Score 3 Nuclear Pleomorphism: Score 2 Mitotic Rate: Score 1 Overall Grade: Grade 2 (scores of 6 or 7) Tumor Size: Greatest dimension of largest invasive focus (Millimeters): 62 mm Ductal Carcinoma In Situ (DCIS): Present Lymphatic and / or Vascular Invasion: Present Treatment Effect in the Breast: Probable or definite response to presurgical therapy in the invasive carcinoma Treatment Effect in the Lymph Nodes: Probable or definite response to presurgical therapy in metastatic carcinoma Residual Cancer [place] (RCB) Calculation: Primary Tumor Bed: Greatest Dimension of Primary Tumor Bed Area (Millimeters): 62 mm Second Greatest Dimension of Primary Tumor Bed Area (Millimeters): 46 mm Percentage of Overall Cancer Cellularity: 2 % Percentage of Cancer that is in situ Disease: 1 % Lymph Nodes: Number of Positive Lymph Nodes: 8 Diameter of Largest Triny Metastasis (Millimeters): 6 mm RCB Calculations: Residual Cancer [place]: 3.099 Residual Cancer [place] Class: RCB-II MARGINS Margin Status for Invasive Carcinoma: All margins negative for invasive carcinoma Distance from Invasive Carcinoma to Closest Margin: 1 mm Closest Margin(s) to Invasive Carcinoma: Superior and inferior superficial Margin Status for DCIS: All margins negative for DCIS Distance from DCIS to Closest Margin: Greater than: 5 mm REGIONAL LYMPH NODES Regional Lymph Node Status: : Tumor present in regional lymph node(s) Number of Lymph Nodes with Macrometastases: 6 Number of Lymph Nodes with Micrometastases: 2 Number of Lymph Nodes with Isolated Tumor Cells: 1 Size of Largest Triny Metastatic Deposit: 6 mm Extranodal Extension: Not identified Total Number of Lymph Nodes Examined (sentinel and non-sentinel): 12 pTNM CLASSIFICATION (AJCC 8th Edition) Reporting of pT, pN, and (when applicable) pM categories is based on information available to the pathologist at the time the report is issued. As per the AJCC (Chapter 1, 8th Ed.) it is the managing physician s responsibility to establish the final pathologic stage based upon all pertinent information, including but potentially not limited to this pathology report. Modified Classification: y pT Category: pT3 pN Category: pN2a Breast Biomarker Testing Performed on Previous Biopsy: Testing Performed on 03/05/2024 11:27 AM CDT [facility] Gross Description A: Breast, right, implant, or# 18: The specimen is received fresh, labeled with the patient's name, medical record number and "right implant . The implant consists of an ovoid implant with a smooth dry surface and viscous translucent contents present. The inscription is "[place], [phone] [id number]". No gross ruptures, adherent tissue, or identifying rizzo are present. Photographs are taken. JH B: Breast, right, right skin sparing mastectomy short double stitch at 12:00 of the nac, long double stitch at 6:00 of the nac, long single stitch at lateral margin; specimen radiograph: yes --- or# 18: A skin sparing mastectomy specimen measuring 17.0 cm from superior to inferior, 15.2 cm from medial to lateral and 2.5 cm from anterior to posterior. The specimen weighs 265 g. The specimen is surfaced by a 4.0 x 3.0 cm ovoid excision of larios-white skin with a central everted nipple of 1.2 cm and a surrounding 2.0 cm areola. There is a portion of larios-pink implant capsule on the posterior margin. The breast is serially sectioned from lateral to medial into 11 slices and is radiographed. There is a 6.2 x 4.6 x 1.8 cm area of dense fibrous tissue and calcifications circled by the radiologist extending from slices 2-7. This area contains a marker clip. This area is grossly 0.6 cm from the superior margin, 0.8 cm from the posterior margin and 0.9 cm from the inferior margin. The remainder of the breast tissue is grossly unremarkable. No lymph nodes are grossly identified. The skin is grossly unremarkable. INK CODE: Blue-superior margin, orange-inferior margin, black-posterior margin. SECTION CODE: B1, lateral margin perpendicular; B2, calcification slice two; B3, superior margin slice three; B4-B6, circled area slice three; B7, inferior margin with circled area slice three; B8, anterior margin slice four; B9-B10, circled area slice four; B11-B12, clip site slice five; B13, posterior calcification with margin slice five; B14, calcification with inferior margin slice five; B15, circled area slice six; B16, central slice six; B17, inferior tissue slice six; B18, nipple; B19, nipple base; B20, circled area with superior margin slice seven; B21, circled area with posterior margin slice seven; B22, central slice seven; B23, section adjacent to circled area slice eight; B24, lower inner quadrant slice eight; B25, upper inner quadrant slice 10; B26, lower inner quadrant slice 10. BM Cold Ischemia and Fixation Times Meet requirements specified in latest version of the ASCO/CAP guidelines. Cold ischemia time: 59m 50s Fixative: 10% Neutral Buffered Formalin In fixative: 02/27/2024 5:00 PM Fixation time: > 6 hours and < 72 hours C: Axillary contents, right, right axillary contents level 1 and 2 --- or# 18: Consist of multiple larios-yellow fibroadipose tissue fragments, aggregating to 7.0 x 5.5 x 3.0 cm. The specimen is palpated to reveal 14 possible lymph nodes, measuring 0.3 - 2.5 cm in greatest dimension. SECTION CODE: C1, three possible lymph nodes in toto; C2, three possible lymph nodes in toto; C3, one possible lymph node, quadrisected; C4, one possible lymph node, serially sectioned; C5, one possible lymph node, serially sectioned; C6, one possible lymph node, serially sectioned; C7, one possible lymph node, serially sectioned; C8, one possible lymph node, serially sectioned; C9, one possible lymph node, serially sectioned; C10-C11, one possible lymph node, serially sectioned; JH Cold Ischemia and Fixation Times Do not meet requirements specified in latest version of the ASCO/CAP guidelines. Cold ischemia time: 2h 25m Fixative: 10% Neutral Buffered Formalin In fixative: 02/27/2024 7:09 PM Fixation time: > 6 hours and < 72 hours 03/05/2024 11:27 AM [facility] [place] [facility] Intraoperative Evaluation B: Breast, right, right skin sparing mastectomy short double stitch at 12:00 of the nac, long double stitch at 6:00 of the nac, long single stitch at lateral margin; specimen radiograph: yes --- or# 18: 1 biopsy clip and calcifications present. Margins are free of tumor. YW 03/05/2024 11:27 AM [facility] [place] [facility] Biomarker Block(s) Primary tumor block: B11 normal Block: B18 Metastatic tumor block: C9 03/05/2024 11:27 AM [facility] Disclaimer "Some tests reported here may have been developed and performance characteristics determined by [facility] Pathology and Laboratory Medicine. These tests have not been specifically cleared or approved by the U.S. Food and Drug Administration. If applicable, controls were reviewed and showed appropriate reactivity." 03/05/2024 11:27 AM [facility] [place] [facility] Foreign Object (Breast, Right, Implant) 02/27/2024 3:47 PM CDT 02/28/2024 7:23 AM CDT Tissue specimen (specimen) (Breast, Right) 02/27/2024 4:01 PM CDT 02/27/2024 4:10 PM CDT Comment:Right Skin sparing m astectomy Short double stitch at 12:00 of the NAC, Long double stitch at 6:00 of the NAC, Long single stitch at lateral margin; Specimen radiograph: yes Tissue specimen (specimen) (Axillary Contents, Right) 02/27/2024 4:44 PM CDT 02/28/2024 7:23 AM CDT Yesenia Tracy MD LAB PATHOL OGY ORDERABLES [facility] [place] [address], * Breast Specimen Radiograph (Right) (02/27/2024 1:45 PM CDT) Anatomical Region Laterality Modality Breast N/A Digital Radiogra phy 02/27/2024 4:32 PM CDT Impressions 02/27/2024 4:32 PM CDT Narrative 02/27/2024 4:32 PM CDT Examination: Specimen Radiograph Right 02/27/2024. Indication: Breast Cancer Technique: Right breast specimen submitted for review. There is a total of 3 radiographic images. The en bloc specimen is imaged on the first radiographic image. Findings: Findings were electronically annotated and discussed with the pathologist Dr. Wolff at the time of this dictation. IMPRESSION: As discussed above. Procedure Note Mae Avilez MD - 02/27/2024 Examination: Specimen Radiograph Right 02/27/2024. Indication: Breast Cancer Technique: Right breast specimen submitted for review. There is a total of3 radiographic images. The en bloc specimen is imaged on the firstradiographic image. Findings: Findings were electronically annotated and discussed with the pathologist Dr. Wolff at the time of this dictation. IMPRESSION: As discussed above. IMPRESSION: Little GOLDEN IMEun MAMMOGRAPHY ORDERABLES * Type and Screen (02/05/2024 10:13 AM CDT) Only the most recent of2 resultswithin the time period is included. ABORh O POS 02/05/2024 9:54 AM CDT [facility] ABSC Negative 02/05/2024 9:54 AM CDT [facility] Clot Expiration 02/08/2024 23:59 02/05/2024 9:54 AM CDT [facility] Historical Record Check Complete 02/05/2024 9:54 AM CDT [facility] Blood Peripheral blood specimen / Unknown Venipuncture / Unknown 02/05/2024 10:13 AM CDT 02/05/2024 10:28 AM CDT Erik Torres MD BLOOD BANK TEST ORDE MAHSEH Performing Organization Address City/State/[facility] Co de Phone Number [facility] [id number] [place] [address] * (ABNORMAL) US Chest for Breast Ultrasound (Add-on Only) (01/27/2024 11:40 AM CDT) Only the most recent of3 resultswithin the time period is included. Anatomical Region Laterality Modality Chest Bilateral Ultrasound 01/27/2024 2:06 PM CDT Impressions 01/27/2024 2:06 PM CDT Area in the right breast is known biopsy-proven malignancy. Interval partial tumor response to therapy. BI-RADS Category 6: Known Biopsy Proven Malignancy Narrative 01/27/2024 2:06 PM CDT CLINICAL INDICATION: Patient is a 53 year old female and is seen for breast cancer FILMS COMPARED The present examination has been compared to prior imaging studies performed at [facility] on 07/08/2023 and 10/25/2023. Images were obtained in multiple scanning planes. Real-time sonographic imaging of the right breast (including all 4 quadrants and retroareolar region) was performed. Real-time sonographic imaging of the right chest wall was performed. Real-time sonographic imaging of the right regional triny basins including ultrasound of the chest/mediastinum to evaluate the axillary (level I,II,III) and internal mammary regions was performed. There has been interval decrease in size of known right breast cancer at 10:00 4 cm from the nipple. This now measures approximately 6.8 x 3.6 x 0.8 cm with associated biopsy clip and in in situ calcifications. This previously measured 8.3 x 6.2 x 1.8 cm on 07/08/2023 ultrasound. There are no other new or suspicious solid masses in the right breast. There has been interval decrease in right axillary lymphadenopathy. The index right axillary level 1 metastatic lymph node now measures 1.7 x 0.8 x 0.5 cm (previously 1.5 x 1.2 x 1 0.7 cm). There are no other suspicious lymph nodes in the right axillary level 1, 2, 3 or internal mammary regional triny basins. Procedure Note Mayra Alexander MD - 01/27/2024 CLINICAL INDICATION: Patient is a 53 year old female and is seen for breast cancer FILMS COMPARED The present examination has been compared to [facility] [place] on 07/08/2023 and 10/25/2023. Images were obtained in multiple scanning planes. Real-time sonographic imaging of the right breast (including all 4quadrants and retroareolar region) was performed. Real-time sonographic imaging of theright chest wall was performed. Real-time sonographic imaging of the rightregional triny basins including ultrasound of the chest/mediastinum to evaluatethe axillary (level I,II,III) and internal mammary regions was performed. There has been interval decrease in size of known right breast cancer at10:00 4 cm from the nipple. This now measures approximately 6.8 x 3.6 x 0.8 cmwith associated biopsy clip and in in situ calcifications. This previouslymeasured 8.3 x 6.2 x 1.8 cm on 07/08/2023 ultrasound. There are no other new or suspicious solid masses in the right breast. There has been interval decrease in right axillary lymphadenopathy. Theindex right axillary level 1 metastatic lymph node now measures 1.7 x 0.8 x 0.5cm (previously 1.5 x 1.2 x 1 0.7 cm). There are no other suspicious lymphnodes in the right axillary level 1, 2, 3 or internal mammary regional nodalbasins. IMPRESSION: Area in the right breast is known biopsy-proven malignancy. Intervalpartial tumor response to therapy. BI-RADS Category 6: Known Biopsy Proven Malignancy Yesenia Tracy MD [facility] [place] ORD ERABLES * (ABNORMAL) US Breast Complete Right (01/27/2024 11:40 AM CDT) Only the most recent of2 resultswithin the time period is included. Anatomical Region Laterality Modality Breast Right Ultrasound 01/27/2024 2:06 PM CDT Impressions 01/27/2024 2:06 PM CDT Area in the right breast is known biopsy-proven malignancy. Interval partial tumor response to therapy. BI-RADS Category 6: Known Biopsy Proven Malignancy Narrative 01/27/2024 2:06 PM CDT CLINICAL INDICATION: Patient is a 53 year old female and is seen for breast cancer FILMS COMPARED The present examination has been compared to prior imaging studies performed at [facility] on 07/08/2023 and 10/25/2023. Images were obtained in multiple scanning planes. Real-time sonographic imaging of the right breast (including all 4 quadrants and retroareolar region) was performed. Real-time sonographic imaging of the right chest wall was performed. Real-time sonographic imaging of the right regional triny basins including ultrasound of the chest/mediastinum to evaluate the axillary (level I,II,III) and internal mammary regions was performed. There has been interval decrease in size of known right breast cancer at 10:00 4 cm from the nipple. This now measures approximately 6.8 x 3.6 x 0.8 cm with associated biopsy clip and in in situ calcifications. This previously measured 8.3 x 6.2 x 1.8 cm on 07/08/2023 ultrasound. There are no other new or suspicious solid masses in the right breast. There has been interval decrease in right axillary lymphadenopathy. The index right axillary level 1 metastatic lymph node now measures 1.7 x 0.8 x 0.5 cm (previously 1.5 x 1.2 x 1 0.7 cm). There are no other suspicious lymph nodes in the right axillary level 1, 2, 3 or internal mammary regional triny basins. Procedure Note Mayra Alexander MD - 01/27/2024 CLINICAL INDICATION: Patient is a 53 year old female and is seen for breast cancer FILMS COMPARED The present examination has been compared to prior imaging [facility]performed [facility] on 07/08/2023 and 10/25/2023. Images were obtained in multiple scanning planes. Real-time sonographic imaging of the right breast (including all 4quadrants and retroareolar region) was performed. Real-time sonographic imaging of theright chest wall was performed. Real-time sonographic imaging of the rightregional triny basins including ultrasound of the chest/mediastinum to evaluatethe axillary (level I,II,III) and internal mammary regions was performed. There has been interval decrease in size of known right breast cancer at10:00 4 cm from the nipple. This now measures approximately 6.8 x 3.6 x 0.8 cmwith associated biopsy clip and in in situ calcifications. This previouslymeasured 8.3 x 6.2 x 1.8 cm on 07/08/2023 ultrasound. There are no other new or suspicious solid masses in the right breast. There has been interval decrease in right axillary lymphadenopathy. Theindex right axillary level 1 metastatic lymph node now measures 1.7 x 0.8 x 0.5cm (previously 1.5 x 1.2 x 1 0.7 cm). There are no other suspicious lymphnodes in the right axillary level 1, 2, 3 or internal mammary regional nodalbasins. IMPRESSION: Area in the right breast is known biopsy-proven malignancy. Intervalpartial tumor response to therapy. BI-RADS Category 6: Known Biopsy Proven Malignancy Yesenia Tracy MD [facility] US ORD ERABLES * Nicotine and Metabolites, Serum (01/27/2024 10:27 AM CDT) Nicotine Lvl-Duncan <3.0 <3.0 ng/mL 01/30/2024 10:03 AM CDT [facility] Cotinine Lvl-Duncan <3.0 <3.0 ng/mL 01/30/2024 10:03 AM CDT [facility] Comment: ADDITIONAL INFORMATION This test was developed and its performance characteristics determined by [facility] in a manner consistent with CLIA requirements. This test has not been cleared or approved by the U.S. Food and Drug Administration. Test Performed by: [facility] [address] [place] [address] Legal Writing Professor: Dercik May M.D. Ph.D.; CLIA# [id number] Blood Peripheral blood specimen / Unknown Port / Unknown 01/27/2024 10:27 AM CDT 01/27/2024 10:28 AM CDT Little [facility] ORDER ROSALINDA [facility] * (ABNORMAL) Hemoglobin A1c (01/27/2024 10:27 AM CDT) Hemoglobin A1c 5.7(H) 4.3 - 5.6 % 01/27/2024 1:16 PM CDT [facility] Blood Peripheral blood specimen / Unknown Port / Unknown 01/27/2024 10:27 AM CDT 01/27/2024 10:28 AM CDT Narrative [facility] - 01/27/2024 1:16 PM CDT HbA1c values >=6.5% are diagnostic of diabetes mellitus. Diagnosis should be confirmed by repeat testing. Therapeutic Action suggested: >8.0% HbA1c; Goal of therapy: <7.0% HbA1c Little [facility] BLOOD ORDER ROSALINDA [facility] [place] [address] [address], Room #[id number] [place] [address] * (ABNORMAL) Mammography Digital Diagnostic Right with Vivek (01/27/2024 9:30 AM CDT) Anatomical Region Laterality Modality Breast Right Mammography 01/27/2024 2:02 PM CDT Impressions 01/27/2024 2:02 PM CDT Area of architectural distortion in the right breast is known biopsy-proven malignancy. Ultrasound is recommended for staging. BI-RADS Category 6: Known Biopsy Proven Malignancy Narrative 01/27/2024 2:02 PM CDT CLINICAL INDICATION: Patient is a 53 year old female and is seen for breast cancer MAMMO DIGITAL DIAGNOSTIC RIGHT W VIVEK Digital Mammogram evaluated with Computer Aided Detection (CAD). COMPARISON: The present examination has been compared to prior imaging studies performed at an outside location on 11/11/2020, 03/02/2022 and 05/22/2023, and at [facility] on 07/08/2023 and 10/25/2023. FINDINGS: The breast is extremely dense, which lowers the sensitivity of mammography. There is an area of architectural distortion with associated fine pleomorphic calcifications with regional distribution and palpable finding in the right breast. The architectural distortion is more subtle and not well-seen. However, the associated calcifications have increased in number and now measures 7 x 6.5 x 4 cm 3 cm from the nipple. This is likely due to tumor response to therapy. Ultrasound-guided biopsy performed at outside institution on June 11, 2023 yielded invasive ductal carcinoma. There is an associated biopsy clip. Tomosynthesis performed in CC and MLO projections. Procedure Note Mayra Alexander MD - 01/27/2024 CLINICAL INDICATION: Patient is a 53 year old female and is seen for breast cancer MAMMO DIGITAL DIAGNOSTIC RIGHT W VIVEK Digital Mammogram evaluated with Computer Aided Detection (CAD). COMPARISON: The present examination has been compared to prior imaging studiesperformed at an outside location on 11/11/2020, 03/02/2022 and 05/22/2023, and at [facility] on 07/08/2023 and 10/25/2023. FINDINGS: The breast is extremely dense, which lowers the sensitivity ofmammography. There is an area of architectural distortion with associated finepleomorphic calcifications with regional distribution and palpable finding in theright breast. The architectural distortion is more subtle and not well-seen. However, the associated calcifications have increased in number and nowmeasures 7 x 6.5 x 4 cm 3 cm from the nipple. This is likely due to tumor responseto therapy. Ultrasound-guided biopsy performed at outside institution on May yielded invasive ductal carcinoma. There is an associated biopsy clip. Tomosynthesis performed in CC and MLO projections. IMPRESSION: Area of architectural distortion in the right breast is knownbiopsy-proven malignancy. Ultrasound is recommended for staging. BI-RADS Category 6: Known Biopsy Proven Malignancy Yesenia Tracy MD IM MAMMOG DAVID ORDERABLES * Cortisol, Total (01/15/2024 7:37 AM CDT) Only the most recent of4 resultswithin the time period is included. Cortisol 15.76 4.82 - 19.50 mcg/dL 01/15/2024 8:24 AM CDT [facility] Blood Venous blood specimen / Unknown Port / Unknown 01/15/2024 7:37 AM CDT 01/15/2024 7:50 AM CDT Narrative [facility] - 01/15/2024 8:24 AM CDT Cortisol reference intervals are established for the morning hours from 6-10 am and afternoon hours 4-8 pm. Due to circadian rhythm of cortisol levels in serum and plasma, the sample collection time must be noted. Caution should be exercised when interpreting such values and done in conjunction with clinical context. Serum Cortisol Reference Ranges for >/= 21 years old: Morning (6-10 am): 4.82 - 19.5 mcg/dL Afternoon (4-8 pm): 2.47 - 11.9 mcg/dL Amber Henry MD LAB BLOOD ORDERABL ES [facility] [address], [address] [place] [address] * ACTH (01/01/2024 7:54 AM BOBBIN COLLECTOR) ACTH 14 7 - 63 pg/mL 01/01/2024 10:28 AM BOBBIN COLLECTOR [facility] Blood Peripheral blood specimen / Unknown Port / Unknown 01/01/2024 7:54 AM BOBBIN COLLECTOR 01/01/2024 8:01 AM BOBBIN COLLECTOR Narrative [facility] - 01/01/2024 10:28 AM BOBBIN COLLECTOR Reference range established based on adult population (7 - 10am draws). No established reference values for p.m. draws. Results greater than 1826 pg/mL may not be reliable due to matrix effect with extended dilution as it exceeds the pl sql programmer's recommended limit. ACTH reference intervals are established for the morning hours from 7-10 am. Due to the circadian rhythm of ACTH levels in plasma, the sample collection time must be noted. Caution should be exercised when interpreting such values and done in conjunction with clinical context. Brenda Farrar APRN LAB BLOOD ORDERABLES [facility] Unless otherwise noted, all lab tests performed by: Division of Pathology and Laboratory Medicine [address] [place] [address] * X-ray Chest 1 View (11/04/2023 6:55 PM BOBBIN COLLECTOR) Anatomical Region Laterality Modality Chest Digital Radiogra phy 11/04/2023 7:18 PM BOBBIN COLLECTOR Impressions 11/04/2023 7:19 PM BOBBIN COLLECTOR No evidence of acute or neoplastic disease. ACTIONABLE ITEMS/RECOMMENDATIONS: None. Narrative 11/04/2023 7:19 PM BOBBIN COLLECTOR FULL RESULT: Examination: XR CHEST 1 VW on November 04, 2023 at 6:48 PM. Clinical History: Breast cancer Indication: Cough Comparison: None Technique: Frontal radiograph of the chest Findings: Lungs/Pleura/Mediastinum: The lungs are clear. The cardiac silhouette is within normal limits. A left-sided central line is present and projects over the area of the cavoatrial junction. Procedure Note Yasemin Kaur MD - 11/04/2023 FULL RESULT: Examination: XR CHEST 1 VW on November 04, 2023 at 6:48 PM. Clinical History: Breast cancer Indication: Cough Comparison: None Technique: Frontal radiograph of the chest Findings: Lungs/Pleura/Mediastinum: The lungs are clear. The cardiac silhouette iswithin normal limits. A left-sided central line is present and projectsover the area of the cavoatrial junction. IMPRESSION: No evidence of acute or neoplastic disease. ACTIONABLE ITEMS/RECOMMENDATIONS: None. Mishel Jamison MD IM DIAGNOSTIC IMAGING ORDERABLES * Respiratory Multiplex PCR Panel, Nasopharyngeal Swab (11/04/2023 6:48 PM BOBBIN COLLECTOR) Adenovirus Not Detected Not Detected 11/04/2023 8:03 PM BOBBIN COLLECTOR [facility] Coronavirus 229E Not Detected Not Detected 11/04/2023 8:03 PM BOBBIN COLLECTOR [facility] Coronavirus HKU1 Not Detected Not Detected 11/04/2023 8:03 PM BOBBIN COLLECTOR [facility] Coronavirus NL63 Not Detected Not Detected 11/04/2023 8:03 PM [facility] Coronavirus OC43 Not Detected Not Detected 11/04/2023 8:03 PM [facility] COVID-19 (SARS-CoV-2) Not Detected Not Detected 11/04/2023 8:03 PM [facility] Human Metapneumovirus Not Detected Not Detected 11/04/2023 8:03 PM [facility] Human Rhinovirus/Enterov irus Not Detected Not Detected 11/04/2023 8:03 PM [facility] Influenza A Not Detected Not Detected 11/04/2023 8:03 PM [facility] Influenza A H1 Not Detected Not Detected 11/04/2023 8:03 PM [facility] Influenza A H1 2009 Not Detected Not Detected 11/04/2023 8:03 PM [facility] Influenza A H3 Not Detected Not Detected 11/04/2023 8:03 PM [facility] Influenza B Not Detected Not Detected 11/04/2023 8:03 PM [facility] Parainfluenza Virus 1 Not Detected Not Detected 11/04/2023 8:03 PM [facility] Parainfluenza Virus 2 Not Detected Not Detected 11/04/2023 8:03 PM [facility] Parainfluenza Virus 3 Not Detected Not Detected 11/04/2023 8:03 PM [facility] Parainfluenza Virus 4 Not Detected Not Detected 11/04/2023 8:03 PM BOBBIN COLLECTOR [facility] Respiratory Syncytial Virus Not Detected Not Detected 11/04/2023 8:03 PM BOBBIN COLLECTOR [facility] Bordetella parapertussis Not Detected Not Detected 11/04/2023 8:03 PM BOBBIN COLLECTOR [facility] Bordetella pertussis Not Detected Not Detected 11/04/2023 8:03 PM BOBBIN COLLECTOR [facility] Chlamydophila pneumoniae Not Detected Not Detected 11/04/2023 8:03 PM BOBBIN COLLECTOR [facility] Mycoplasma pneumoniae Not Detected Not Detected 11/04/2023 8:03 PM BOBBIN COLLECTOR [facility] Swab Nasopharyngeal structure / Unknown Non-blood Collection / Unknown 11/04/2023 6:48 PM BOBBIN COLLECTOR 11/04/2023 6:54 PM BOBBIN COLLECTOR [facility] - 11/04/2023 8:03 PM BOBBIN COLLECTOR The assay is a qualitative multiplex PCR assay to aid in the diagnosis of respiratory pathogens through simultaneous qualitative detection and identification of multiple pathogens directly from nasopharyngeal swabs (MFTS) from individuals with respiratory symptoms. Testing is performed using the [employer] Film[employer] Respiratory Panel 2.1 (RP2.1) on the [employer] System. The following organisms are identified using the [employer] RP 2.1 Panel: Adenovirus, Human Coronavirus (229E, HKU1, NL63, and OC43), Severe Acute Respiratory Syndrome Coronavirus 2 (SARS-CoV-2), Human Metapneumovirus, Human Rhinovirus/Enterovirus, Influenza A, including subtypes (H1, H3 and H1-2009), Influenza B, Parainfluenza Virus (1, 2, 3, and 4), Respiratory Syncytial Virus, Bordetella parapertussis, Bordetella pertussis, Chlamydia pneumoniae, and Mycoplasma pneumoniae A result of Not Detected" does not exclude the possibility of the presence of one or more of the pathogens at or below the detection limits of this assay nor does exclude the possibility of pathogens not detected by this panel. Non-infectious causes of respiratory symptoms should also be considered in such cases. Internal controls are used to monitor all stages of the testing process including amplification inhibition. If inhibition is detected, testing is repeated and if inhibition is confirmed the specimen is resulted as "Invalid". When an "Invalid" result occurs, it is recommended to wait 3 days before submitting a new specimen for testing if clinically indicated. This is an FDA-approved assay and its performance characteristics were verified by the microbiology laboratory at the [facility] (CLIA Accreditation # [id number] and CAP Accreditation # [id number]). Results must be interpreted within the context of all relevant clinical and laboratory findings. Assay should not be used for monitoring response to therapy. Mishel Jamison MD MICROBIOLOGY - GENERAL ORDERABLES [facility] Unless otherwise noted, all lab tests performed by: Division of Pathology and Laboratory Medicine [address] [place] [id number] * Historical ABORh (11/04/2023 11:15 AM BOBBIN COLLECTOR) ABORh O POS 11/04/2023 11:16 AM BOBBIN COLLECTOR [facility] Blood Peripheral blood specimen / Unknown 11/04/2023 11:15 AM BOBBIN COLLECTOR 11/04/2023 11:15 AM BOBBIN COLLECTOR Melissa [facility] TEST ORDE MAHESH Performing Organization Address [facility] Co de Phone Number [facility] [address] [place] [address] [id number] [place] [address] * Echocardiogram 2D Complete (11/04/2023 9:32 AM BOBBIN COLLECTOR) 11/04/2023 9:10 AM BOBBIN COLLECTOR Narrative [facility] - 11/04/2023 6:51 PM BOBBIN COLLECTOR Echocardiographic Report Interpretation Summary A complete two-dimensional transthoracic echocardiogram was performed (2D, M- mode, Spectral and color Doppler). Compared to prior study, there is no significant change. On visual comparison with previous echocardiogram, there is no significant change in LVEF. Normal left ventricular size and systolic function. LV ejection fraction (LVEF) is in the range of 56% (calculated by method of discs). The right ventricle is normal in size and function. Unable to estimate RVSP due to lack of TR visualization. There is no pericardial effusion. Left Ventricle: Normal left ventricular size and systolic function. There is no thrombus. There is normal left ventricular wall thickness. LV ejection fraction (LVEF) is in the range of 56% (calculated by method of discs). The left ventricular wall motion is normal. I WMSI = 1.00 % Normal = 100 Normal global longitudinal peak systolic value X - Cannot 1 - Normal 2 - 3 - Akinetic 4 - Dyskinetic Interpret Hypokinetic 5 - Aneurysmal 3D imaginD volumes were not performed in this study. Cardiac Mechanics/Speckle Tracking Imaging: Normal global longitudinal peak systolic value. Strain Imaging was performed; GLPS avg = -18.9%. Diastology: Impaired LV relaxation pattern of diastolic dysfunction, Doppler suggests normal LA pressures. Right Ventricle: The right ventricle is normal in size and function. Normal RV systolic function using TAPSE criteria. Atria: The left atrial size is normal. Right atrial size is normal. Mitral Valve: Mild thickening changes are noted. Tricuspid Valve: The tricuspid valve is not well visualized, but is grossly normal. Unable to estimate RVSP due to lack of TR visualization. Aortic Valve: The aortic valve opens well. The aortic valve is trileaflet. Pulmonic Valve: The pulmonic valve is not well visualized. Great Vessels: The aortic root is normal size. The inferior vena cava demonstrates normal size and normal respiratory variation. Pericardium/Pleural: There is no pericardial effusion. Preliminary Reviewer Preliminary Interpretation: Ama Norris MD. MMode/2D Measurements IVSd: 0.79 cm LVIDd: 3.6 cm LVIDs: 2.7 cm LVPWd: 0.75 cm FS: 23.9 % Ao root diam: 2.8 cm Ao root area: 6.1 cm2 LA dimension: 2.5 cm LVOT diam: 1.9 cm EDV(MOD-A4C): 50.8 ml ESV(MOD-A4C): 23.2 ml LVOT area: 2.7 cm2 EF(MOD-A4C): 54.4 % EDV(MOD-A2C): 55.3 ml ESV(MOD-A2C): 23.5 ml EDV(MOD-bp): 53.4 ml EF(MOD-A2C): 57.5 % ESV(MOD-bp): 23.4 ml EF(MOD-bp): 56.2 % LAV(MOD-A2C): 24.8 ml EDV (MOD-bp) Index: 38.3 ml/m2 LAV(MOD-A4C): 16.0 ml LAV(MOD-bp): 20.8 ml LAV(MOD-bp) Indexed: 14.9 ml/m2 ESV (MOD-bp) Index: 16.8 ml/m2 RWT: 0.42 cm TAPSE (>1.6): 2.3 cm Doppler Measurements MV E max rohini: 58.2 cm/sec MV V2 max: 73.3 cm/sec MV A max rohini: 63.8 cm/sec MV max P.2 mmHg MV E/A: 0.91 MV V2 mean: 48.0 cm/sec MV mean P.0 mmHg MV V2 VTI: 16.0 cm MVA(VTI): 3.2 cm2 MV dec time: 0.20 sec Ao V2 max: 106.1 cm/sec Ao max P.5 mmHg Ao V2 mean: 70.2 cm/sec Ao mean P.2 mmHg Ao V2 VTI: 16.1 cm BRIT(I,D): 3.2 cm2 BRIT(V,D): 3.0 cm2 LV V1 max P.4 mmHg SV(LVOT): 50.8 ml LV V1 mean P.5 mmHg LV V1 max: 116.1 cm/sec LV V1 mean: 74.0 cm/sec LV V1 VTI: 18.7 cm Med Peak E' Rohini: 7.3 cm/sec Lat Peak E' Rohini: 10.1 cm/sec RV S Vel_phl: 11.3 cm/sec BRIT Index (I,D): 2.3 BRIT Index (V,D): 2.1 Dimensionless Index: 1.1 E/e' (avg): 6.7 E/e' (lat): 5.8 E/e' (sept): 8.0 Procedure Note Willie Mcguire MD - 11/04/2023 Echocardiographic Report Interpretation Summary A complete two-dimensional transthoracic echocardiogram was performed (2D,M- mode, Spectral and color Doppler). Compared to prior study, there is nosignificant change. On visual comparison with previous echocardiogram,there is no significant change in LVEF. Normal left ventricular size and systolic function. LV ejection fraction (LVEF) is in the range of 56% (calculated by methodof discs). The right ventricle is normal in size and function. Unable to estimate RVSP due to lack of TR visualization. There is no pericardial effusion. Left Ventricle: Normal left ventricular size and systolic function. There is no thrombus.There is normal left ventricular wall thickness. LV ejection fraction(LVEF) is in the range of 56% (calculated by method of discs). The leftventricular wall motion is normal. I WMSI = 1.00 % Normal = 100 Normal global longitudinal peak systolic value X - Cannot 1 - Normal 2 - 3 - Akinetic 4 - Dyskinetic Interpret Hypokinetic 5 - Aneurysmal 3D imaginD volumes were not performed in this study. Cardiac Mechanics/Speckle Tracking Imaging: Normal global longitudinal peak systolic value. Strain Imaging wasperformed; GLPS avg = -18.9%. Diastology: Impaired LV relaxation pattern of diastolic dysfunction, Doppler suggestsnormal LA pressures. Right Ventricle: The right ventricle is normal in size and function. Normal RV systolicfunction using TAPSE criteria. Atria: The left atrial size is normal. Right atrial size is normal. Mitral Valve: Mild thickening changes are noted. Tricuspid Valve: The tricuspid valve is not well visualized, but is grossly normal. Unableto estimate RVSP due to lack of TR visualization. Aortic Valve: The aortic valve opens well. The aortic valve is trileaflet. Pulmonic Valve: The pulmonic valve is not well visualized. Great Vessels: The aortic root is normal size. The inferior vena cava demonstrates normalsize and normal respiratory variation. Pericardium/Pleural: There is no pericardial effusion. Preliminary Reviewer Preliminary Interpretation: Ama Norris MD. MMode/2D Measurements IVSd: 0.79 cmLVIDd: 3.6 cm LVIDs: 2.7 cm LVPWd: 0.75 cm FS: 23.9 %Ao root diam: 2.8 cm Ao root area: 6.1 cm2 LA dimension: 2.5 cm LVOT diam: 1.9 cmEDV(MOD-A4C): 50.8 ml ESV(MOD-A4C): 23.2 ml LVOT area: 2.7 cm2EF(MOD-A4C): 54.4 % EDV(MOD-A2C): 55.3 ml ESV(MOD-A2C): 23.5 mlEDV(MOD-bp): 53.4 ml EF(MOD-A2C): 57.5 %ESV(MOD-bp): 23.4 ml EF(MOD-bp): 56.2 % LAV(MOD-A2C): 24.8 mlEDV (MOD-bp) Index: 38.3 ml/m2 LAV(MOD-A4C): 16.0 ml LAV(MOD-bp): 20.8 ml LAV(MOD-bp) Indexed: 14.9 ml/m2 ESV (MOD-bp) Index: 16.8 ml/m2RWT: 0.42 cm TAPSE (>1.6): 2.3 cm Doppler Measurements MV E max rohini: 58.2 cm/secMV V2 max: 73.3 cm/sec MV A max rohini: 63.8 cm/secMV max P.2 mmHg MV E/A: 0.91MV V2 mean: 48.0 cm/sec MV mean P.0 mmHg MV V2 VTI: 16.0 cm MVA(VTI): 3.2 cm2 MV dec time: 0.20 secAo V2 max: 106.1 cm/sec Ao max P.5 mmHg Ao V2 mean: 70.2 cm/sec Ao mean P.2 mmHg Ao V2 VTI: 16.1 cm BRIT(I,D): 3.2 cm2 BRIT(V,D): 3.0 cm2 LV V1 max P.4 mmHgSV(LVOT): 50.8 ml LV V1 mean P.5 mmHg LV V1 max: 116.1 cm/sec LV V1 mean: 74.0 cm/sec LV V1 VTI: 18.7 cm Med Peak E' Rohini: 7.3 cm/secLat Peak E' Rohini: 10.1 cm/sec RV S Vel_phl: 11.3 cm/secAVA Index (I,D): 2.3 BRIT Index (V,D): 2.1Dimensionless Index: 1.1 E/e' (avg): 6.7E/e' (lat): 5.8 E/e' (sept): 8.0 Amber Henry MD CV ECHO ORDERABLES Performing Organization Address [facility] Co de Phone Number ISCV * MDA CP PLASMF (10/25/2023 11:39 AM BOBBIN COLLECTOR) Only the most recent of5 resultswithin the time period is included. Blood Venous blood specimen / Unknown CVC Line / Unknown 10/25/2023 11:39 AM BOBBIN COLLECTOR 10/25/2023 12:44 PM BOBBIN COLLECTOR [facility] BALLISTICS TEACHER LAB BLOOD ORDERABLES Performing Organization Address City/[facility]/ZIP Co de Phone Number [facility], [address] [place] [id number] * BUN (10/25/2023 11:33 AM BOBBIN COLLECTOR) Only the most recent of11 resultswithin the time period is included. BUN 9 6 - 23 mg/dL 10/25/2023 1 :20 PM BOBBIN COLLECTOR [facility] Blood Venous blood specimen / Unknown CVC Line / Unknown 10/25/2023 11:33 AM BOBBIN COLLECTOR 10/25/2023 12:44 PM BOBBIN COLLECTOR Paul [facility] BALLISTICS TEACHER LAB BLOOD ORDERABLES Performing Organization Address [facility] de Phone Number [facility], [address] [address] * Creatinine, serum (10/25/2023 11:33 AM BOBBIN COLLECTOR) Only the most recent of6 resultswithin the time period is included. Creatinine 0.63 0.51 - 0.95 mg/dL 10/25/2023 1:20 PM BOBBIN COLLECTOR [facility] eGFR 105 >=60 mL/min/1.7 3 sq. m 10/25/2023 1:20 PM BOBBIN COLLECTOR [place] Comment: The eGFRcr is calculated with the 2020 CKD-EPI creatinine equation using creatinine, patient's age, and sex for adults 18 years of age and older. Other factors, especially muscle mass, may affect accuracy and need to be considered. According to the Kidney Disease: Improving Global Outcomes (KDIGO) CKD Work Group 2012 Clinical Practice Guideline, chronic kidney disease (CKD) is defined as the abnormalities of kidney structure or function, present for more than 3 months, with implications for health. CKD should be classified by cause, GFR category, and albuminuria category. KDIGO guidelines provide the following GFR categories. Stage / Description / GFR mL/min/1.73 m2: G1* / Normal or high / >= 90 G2* / Mildly decreased / 60-89 G3a / Mildly to moderately decreased / 45-59 G3b / Moderately to severely decreased / 30-44 G4 / Severely decreased / 15-29 G5 / Kidney failure / <15 *In the absence of evidence of kidney damage, neither G1 nor G2 fulfill criteria for CKD. Blood Venous blood specimen / Unknown CVC Line / Unknown 10/25/2023 11:33 AM BOBBIN COLLECTOR 10/25/2023 12:44 PM BOBBIN COLLECTOR [facility] LAB BLOOD ORDERABLES [facility] [address], [address] [place] [address] * .Serum Creatinine (08/16/2023 9:56 AM CDT) Only the most recent of5 resultswithin the time period is included. Creatinine 0.59 0.51 - 0.95 mg/dL [facility] Comment:Testing performed at [facility], [address] [place] [address] Blood 08/16/2023 9:56 AM CDT 08/16/2023 10:58 AM CDT [facility] LAB BLOOD ORDERABLES [facility] [address] [facility], [facility] [address] [place] [address] * Glomerular Filtration Rate (08/16/2023 9:56 AM CDT) Only the most recent of5 resultswithin the time period is included. eGFR 108 >=60 mL/min/1.7 3 sq. m [facility] Comment: The eGFRcr is calculated with the 2020 CKD-EPI creatinine equation using creatinine, patient's age, and sex for adults 18 years of age and older. Other factors, especially muscle mass, may affect accuracy and need to be considered. According to the Kidney Disease: Improving Global Outcomes (KDIGO) CKD Work Group 2012 Clinical Practice Guideline, chronic kidney disease (CKD) is defined as the abnormalities of kidney structure or function, present for more than 3 months, with implications for health. CKD should be classified by cause, GFR category, and albuminuria category. KDIGO guidelines provide the following GFR categories Stage Description GFR mL/min/1.73 m2 G1* Normal or high >= 90 G2* Mildly decreased 60-89 G3a Mildly to moderately decreased 45-59 G3b Moderately to severely decreased 30-44 G4 Severely decreased 15-29 G5 Kidney failure <15 *In the absence of evidence of kidney damage, neither G1 nor G2 fulfill criteria for CKD. Testing performed at [facility], [address] [place] [address] Blood 08/16/2023 9:56 AM CDT 08/16/2023 10:58 AM CDT Paul Uthup BALLISTICS TEACHER LAB BLOOD ORDERABLES Performing Organization Address City/State/[facility] Co de Phone Number [address], [facility] [address] [place] [address] * Fractionated Bilirubin (08/02/2023 8:40 AM CDT) Only the most recent of2 resultswithin the time period is included. [facility] Bili Total 0.9 <=1.2 mg/dL [facility] Comment: Indocyanine Green (ICG) may cause falsely elevated bilirubin results. Total and direct bilirubin must not be measured from samples containing indocyanine green. False elevation of total bilirubin can be seen in patients with IgG concentrations above 28 g/L. Testing performed at [facility], [address] [place] [address] Bili Direct 0.2 <=0.3 mg/dL [facility] Comment: Indocyanine Green (ICG) may cause falsely elevated bilirubin results. Total and direct bilirubin must not be measured from samples containing indocyanine green. Testing performed at [facility], [address] [place] [address] Bili Indirect 0.7 0.0 - 0.9 mg/dL [facility] Comment:Testing performed at [facility], [address] [place] [address] Blood 08/02/2023 8:40 AM CDT 08/02/2023 8:43 AM CDT Amber Henry MD LAB BLOOD ORDERABL ES [address], [facility] [address] [place] [address] * ALT (08/02/2023 8:40 AM CDT) Only the most recent of2 resultswithin the time period is included. ALT 25 <=33 U/L [facility] Comment:Testing performed at [facility], [address] [place] [address] Blood 08/02/2023 8:40 AM CDT 08/02/2023 8:43 AM CDT Amber Henry MD LAB BLOOD ORDERABL ES [address], [facility] [address] [place] [address] * Aspartate Aminotransferase (08/02/2023 8:40 AM CDT) Only the most recent of2 resultswithin the time period is included. AST 27 <=32 U/L [facility] Comment:Testing performed at [facility], [address] [place] [address] Blood 08/02/2023 8:40 AM CDT 08/02/2023 8:43 AM CDT Amber Henry MD LAB BLOOD ORDERABL ES Performing Organization Address City/[facility]/[place] [address] * Total Protein (08/02/2023 8:40 AM CDT) Only the most recent of2 resultswithin the time period is included. [facility] Total Protein 6.5 6.4 - 8.3 g/dL [facility] Comment:Testing performed at [facility], [address] [place] [address] Blood 08/02/2023 8:40 AM CDT 08/02/2023 8:43 AM CDT Amber Henry MD LAB BLOOD ORDERABL ES Performing Organization Address [facility] [place] [address] * (ABNORMAL) Alkaline Phosphatase (08/02/2023 8:40 AM CDT) Only the most recent of2 resultswithin the time period is included. [facility] Alk Phos 113(H) 35 - 104 U/L [facility] Comment:Testing performed at [facility], [address] [place] [address] Blood 08/02/2023 8:40 AM CDT 08/02/2023 8:43 AM CDT Amber Henry MD LAB BLOOD ORDERABL ES Performing Organization Address City/[facility] Co de Phone Number [address], [place] [address] * (ABNORMAL) Glucose Level (08/02/2023 8:40 AM CDT) Only the most recent of2 resultswithin the time period is included. [facility] Glucose Level 210(H) 70 - 99 mg/dL [facility] Comment: Effective 05/23/16, the glucose reference intervals have been updated based on [place] Diabetes [employer] guidelines (Standards of Medical Care in Diabetes 2016. Diabetes Care 2016; 39: S13-S22). Fasting blood glucose: Normal: 70-99 mg/dL Impaired fasting glucose (increased risk for diabetes or pre-diabetes): 100- 125 mg/dL Diabetes mellitus: >/=126 mg/dL Random blood glucose: Normal: 70-199 mg/dL Note: Random glucose >100 mg/dL is associated with increased risk for diabetes Testing performed at [facility], [address] [place] [address] Blood 08/02/2023 8:40 AM CDT 08/02/2023 8:43 AM CDT Amber Henry MD LAB BLOOD ORDERABL ES Performing Organization Address City/[facility] [place] [address] * Calcium Level (08/02/2023 8:40 AM CDT) Only the most recent of2 resultswithin the time period is included. Calcium Lvl 9.5 8.4 - 10.2 mg/dL [facility] Comment:Testing performed at [facility], [address] [place] [address] Blood 08/02/2023 8:40 AM CDT 08/02/2023 8:43 AM CDT Amber Henry MD LAB BLOOD ORDERABL ES [place] [id number] * Albumin Level (08/02/2023 8:40 AM CDT) Only the most recent of2 resultswithin the time period is included. Albumin Lvl 4.0 3.5 - 5.2 gm/dL [facility] Comment:Testing performed at [facility], [address] [place] [address] Blood 08/02/2023 8:40 AM CDT 08/02/2023 8:43 AM CDT Amber Henry MD LAB BLOOD ORDERABL ES [place] [id number] [place] [address] * Electrolyte Panel (08/02/2023 8:40 AM CDT) Only the most recent of2 resultswithin the time period is included. [facility] Signature Sodium Lvl 137 136 - 145 mEq/L [facility] Comment:Testing performed at [facility], [address] [place] [address] Potassium Lvl 4.1 3.5 - 5.1 mEq/L [facility] Comment:Testing performed at [facility], [address] [place] [address] Chloride 102 98 - 107 mEq/L [facility] Comment:Testing performed at [facility], [address] [place] [address] CO2 24 22 - 29 mEq/L [facility] Comment:Testing performed at [facility], [address] [place] [address] Anion Gap 11 4 - 14 mEq/L [facility] Comment:Testing performed at [facility], [address] [place] [address] Blood 08/02/2023 8:40 AM CDT 08/02/2023 8:43 AM CDT Amber Henry MD LAB BLOOD ORDERABL ES [place] [address] [place] [address] * IR FL PORT PLACEMENT (08/01/2023 9:42 AM CDT) Anatomical Region Laterality Modality X-Ray Angiograph y, Ultrasound Narrative 08/01/2023 10:20 AM CDT Date of Procedure: 08/01/23 Attending Physician: Julius Bates MD Supervisor Webbing: Geoffrey Gómez 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 Port: Bard PowerPort Clearvue SLIM Implantable Port Catheter size: 8F Operative Findings: Successful percutaneous image-guided power-injectable chest port placement in the left internal jugular vein. Consent: The procedure, risks, indications and alternatives were explained. All questions were answered and informed consent was obtained. I have reviewed the history and physical dictated by the mid-level practitioner / fellow. Sedation/Anesthesia: Anesthesia provided by Anesthesia Department. Insertion site prepped with: Chlorhexadine gluconate Procedure in Detail: A time out was performed prior to the start of the procedure and the correct patient, procedure, presence of consent, site, and side were confirmed with all members of the team. Insertion site was prepped and cleaned with aseptic technique. Sterile devices and equipment were used. Doors were closed and traffic kept to a minimum during the procedure. Skin prep agent was allowed to dry prior to procedure. Maximum sterile barriers were used including sterile gloves, gown, cap, mask and head to toe sterile cover. Hand hygiene was performed prior to insertion by all persons performing/assisting with procedure. Ultrasound evaluation of the access site demonstrated a patent and compressible vein. Lidocaine 1% was used for local anesthesia. Under ultrasound imaging guidance, a 21 gauge needle was advanced into the left internal jugular vein and the access site was scaled up to accept a micropuncture transitional dilator. An image was obtained and placed into the medical record. A wire was advanced into the inferior vena cava under fluoroscopic guidance to secure access. An appropriate site within the upper chest was determined and an incision was created. A subcutaneous pocket below the incision site was created. The subcutaneous tunnel was then created in the upper chest and the port catheter was advanced through the tunnel. The venous access site was scaled up to accept a peel-away sheath. The catheter was then advanced through the sheath, with the tip of the catheter in a satisfactory position at the SVC/atrial junction on fluoroscopy. The catheter was connected to the hub of the chest port. The chest port hub was placed within the subcutaneous pocket. Venous access incision closed with Dermabond. The port pocket incision was closed as below. Port pocket closure: The incision was approximated with multiple subdermal sutures. Dermabond was applied to the incision sites. Additional Comments: The port was placed slightly more superior due to the position of breast implant Estimated Blood Loss: Minimal Specimens Removed: No Disposition: PACU Plan: Port Catheter positioning was confirmed with a fluoroscopic image at the conclusion of the procedure. Tip of the catheter lies at the SVC/RA junction. The port is now ready for immediate use. Patient will be contacted in 1-2 weeks for a post port placement incision check. This draft note was prepared by the GAVIOTA involved in the case; it was then reviewed and finalized by the attending physician. Paul Merritt BALLISTICS TEACHER IMG IR ORDERABLES * EKG, 12-Lead (Portable) (08/01/2023) Geoffrey GOLDEN ECG ORDERABLES Performing Organization Address [facility] Co de Phone Number WILLIAM IECG * Confirm ABORh (07/31/2023 11:17 AM CDT) ABORh Confirm. O POS [facility] Blood 07/31/2023 11:1 7 AM CDT 07/31/2023 2:38 PM CDT Kimmie GOLDEN BLOOD BANK TEST GE [place] Performing Organization Address City/[facility]/ZIP Co de Phone Number [facility] Unless otherwise noted, all lab tests performed by: Division of Pathology and Laboratory Medicine [address] [place] [address] * Glucose, Random (07/31/2023 10:57 AM CDT) Glucose Random 95 70 - 199 mg/dL [facility] Comment: Effective 05/23/16, the glucose reference intervals have been updated based on [place] Diabetes [employer] guidelines (Standards of Medical Care in Diabetes 2016. Diabetes Care 2016; 39: S13-S22) Fasting blood glucose: Normal: 70-99 mg/dL Impaired fasting glucose (increased risk for diabetes or pre-diabetes): 100-125 mg/dL Diabetes mellitus: >/= 126 mg/dL Random blood glucose: Normal: 70-199 mg/dL Note: Random glucose >100 mg/dL is associated with increased risk for diabetes Testing performed at [facility], [address] [place] [address] Blood 07/31/2023 10:5 7 AM CDT 07/31/2023 11:13 AM CDT Kimmie GOLDEN LAB BLOOD ORDERABLES Performing Organization Address City/[facility]/ZIP Co de Phone Number [facility] [address] [address] [facility], Room #[id number] [place] [address] * Anion Gap (07/31/2023 10:57 AM CDT) Pathologist [facility] Anion Gap 10 4 - 14 mEq/L [facility] Comment:Testing performed at [facility], [address] [address] [facility] [place] [address] Blood 07/31/2023 10:5 7 AM CDT 07/31/2023 11:13 AM CDT Kimmie GOLDEN LAB BLOOD ORDERABLES Performing Organization Address City/[facility]/ZIP Co de Phone Number [facility] [address] [facility], Room #[id number] [place] [address] * Clot Expiration Date (07/31/2023 10:57 AM CDT) T & S Expiration 08/03/2023 [facility] Blood 07/31/2023 10:5 7 AM CDT 07/31/2023 2:38 PM CDT Kimmie GOLDEN BLOOD BANK TEST ORDE RABLES [facility] Unless otherwise noted, all lab tests performed by: Division of Pathology and Laboratory Medicine [address] [place] [address] * TMP Interpretation Antibody Screen Negative (07/31/2023 10:57 AM CDT) Pathologist [facility] TMP Auto Neg ABSC Interp At the present time, patient plasma shows no evidence of RBC alloantibodi es. [facility] Comment: MD eYnifer TIJERINA [id number] Dictated by: MD Yenifer TIJERINA Dictated Date/Time: 08.01.2023 10:23 AM CDT Transcribed Date/Time: 08.01.2023 10:23 AM CDT Electronically Signed By: MD Yenifer TIJERINA [id number] on 08.01.2023 10:23 AM Blood 07/31/2023 10:5 7 AM CDT 07/31/2023 2:38 PM CDT Kimmie GOLDEN BLOOD BANK TEST ORDSimon AR[place] Performing Organization Address City/[facility] Co de Phone Number [facility] Unless otherwise noted, all lab tests performed by: Division of Pathology and Laboratory Medicine [address] [place] [address] * ABORh (07/31/2023 10:57 AM CDT) Pathologist [facility] ABORh. O POS OR MD MON[facility] Blood 07/31/2023 10:5 7 AM CDT 07/31/2023 2:38 PM CDT Kimmie GOLDEN BLOOD BANK TEST ORDSimon [place] Performing Organization Address [facility] Co de Phone Number [facility] Unless otherwise noted, all lab tests performed by: Division of Pathology and Laboratory Medicine [address] [place] [address] * Prothrombin Time (07/31/2023 10:57 AM CDT) [facility] PT 12.5 11.9 - 14.5 second(s) [facility] Comment:Testing performed at [facility], [address] [facility], [place] [address] INR 0.91 0.87 - 1.12 [facility] Comment:Testing performed at [facility], [address] [facility], [place] [address] Blood 07/31/2023 10:5 7 AM CDT 07/31/2023 11:13 AM CDT Narrative [facility] - 07/31/2023 12:16 PM CDT This lab cannot be scheduled at the following locations due to collection/proccessing restrictions: [facility] and [facility]. Kimmie GOLDEN LAB BLOOD ORDERABLES [facility] [address] [facility], Room #[id number] [place] [address] * Antibody Screen (07/31/2023 10:57 AM CDT) Pathologist [facility] ABSC. Negative ABSC [facility] Blood 07/31/2023 10:5 7 AM CDT 07/31/2023 2:38 PM CDT Kimmie GOLDEN BLOOD BANK TEST ORDE RABLES [facility] Unless otherwise noted, all lab tests performed by: Division of Pathology and Laboratory Medicine [address] [place] [address] * Sodium Level (07/31/2023 10:57 AM CDT) [facility] Sodium Lvl 138 136 - 145 mEq/L [facility] Comment:Testing performed at [facility], [address] [facility], [place] [address] Blood 07/31/2023 10:5 7 AM CDT 07/31/2023 11:13 AM CDT Kimmie GOLDEN LAB BLOOD ORDERABLES [facility] [address], Room #[id number] [place] [address] * Potassium (07/31/2023 10:57 AM CDT) Potassium Lvl 4.2 3.5 - 5.1 mEq/L [facility] Comment:Testing performed at [facility], [address] [facility], [place] [address] Blood 07/31/2023 10:5 7 AM CDT 07/31/2023 11:13 AM CDT Kimmie GOLDEN LAB BLOOD ORDERABLES Performing Organization Address [facility]/ZIP Co de Phone Number [facility] [address] [address], Room #[id number] [place] [address] * Chloride Level (07/31/2023 10:57 AM CDT) Chloride 101 98 - 107 mEq/L [facility] Comment:Testing performed at [facility], [address] [facility], [place] [address] Blood 07/31/2023 10:5 7 AM CDT 07/31/2023 11:13 AM CDT Kimmie GOLDEN LAB BLOOD ORDERABLES Performing Organization Address [facility]/ZIP Co de Phone Number [facility] [address] [facility], Room #[id number] [place] [address] * Carbon Dioxide Level (07/31/2023 10:57 AM CDT) CO2 27 22 - 29 mEq/L [facility] Comment:Testing performed at [facility], [address] [facility], [place] [address] Blood 07/31/2023 10:5 7 AM CDT 07/31/2023 11:13 AM CDT Kimmie GOLDEN LAB BLOOD ORDERABLES [facility] [address] [address], Room #[id number] [place] [address] * Echocardiogram 2D Complete (07/26/2023 2:28 PM CDT) EF 62 ISCV 07/26/2023 1:34 PM CDT Narrative [facility] - 07/26/2023 3:28 PM CDT Echocardiographic Report Interpretation Summary A complete two-dimensional transthoracic echocardiogram was performed (2D, M- mode, Spectral and color Doppler). There is no comparison study available. Normal left ventricular size and systolic function. LV ejection fraction calculated using the bi-plane method of disks is 62 %. The right ventricle is normal in size and function. Unable to estimate RVSP due to lack of TR visualization. There is no pericardial effusion. Left Ventricle: Normal left ventricular size and systolic function. There is normal left ventricular wall thickness. LV ejection fraction calculated using the bi-plane method of disks is 62 %. I WMSI = 1.00 % Normal = 100 Normal global longitudinal peak systolic value X - Cannot 1 - Normal 2 - 3 - Akinetic 4 - Dyskinetic Interpret Hypokinetic 5 - Aneurysmal 3D imaginD volumes were not performed in this study. Cardiac Mechanics/Speckle Tracking Imaging: Normal global longitudinal peak systolic value. Strain Imaging was performed; GLPS avg = -23.7%. Diastology: Normal diastolic function. Right Ventricle: The right ventricle is normal in size and function. Normal RV systolic function using TAPSE criteria. Atria: The left atrial size is normal. Right atrial size is normal. Mitral Valve: Mild thickening changes are noted. Tricuspid Valve: The tricuspid valve is not well visualized, but is grossly normal. Unable to estimate RVSP due to lack of TR visualization. Aortic Valve: The aortic valve opens well. Pulmonic Valve: The pulmonic valve is not well visualized. Great Vessels: The aortic root is not well visualized but is probably normal size. The inferior vena cava demonstrates normal size and normal respiratory variation. Pericardium/Pleural: There is no pericardial effusion. Preliminary Reviewer Preliminary Interpretation: Ama Norris MD. MMode/2D Measurements IVSd: 0.57 cm LVIDd: 4.0 cm LVIDs: 2.5 cm LVPWd: 0.57 cm FS: 37.3 % Ao root diam: 2.8 cm Ao root area: 6.0 cm2 LA dimension: 2.1 cm LVOT diam: 1.9 cm EDV(MOD-A4C): 49.6 ml ESV(MOD-A4C): 18.5 ml LVOT area: 2.8 cm2 EF(MOD-A4C): 62.7 % EDV(MOD-A2C): 56.6 ml ESV(MOD-A2C): 21.4 ml EDV(MOD-bp): 53.8 ml EF(MOD-A2C): 62.1 % ESV(MOD-bp): 20.2 ml EF(MOD-bp): 62.4 % LAV(MOD-A2C): 18.2 ml EDV (MOD-bp) Index: 39.1 ml/m2 LAV(MOD-A4C): 20.5 ml LAV(MOD-bp): 20.2 ml LAV(MOD-bp) Indexed: 14.7 ml/m2 ESV (MOD-bp) Index: 14.7 ml/m2 RWT: 0.29 cm TAPSE (>1.6): 1.9 cm Doppler Measurements MV E max rohini: 79.4 cm/sec MV V2 max: 96.9 cm/sec MV A max rohini: 74.9 cm/sec MV max P.8 mmHg MV E/A: 1.1 MV V2 mean: 54.1 cm/sec MV mean P.3 mmHg MV V2 VTI: 23.1 cm MVA(VTI): 2.3 cm2 MV P1/2t max rohini: 79.4 cm/sec Ao V2 max: 111.1 cm/sec MV P1/2t: 59.5 msec Ao max P.9 mmHg Ao V2 mean: 71.9 cm/sec MVA(P1/2t): 3.7 cm2 Ao mean P.3 mmHg MV dec slope: 390.5 cm/sec2 Ao V2 VTI: 17.8 cm BRIT(I,D): 3.0 cm2 BRIT(V,D): 2.7 cm2 LV V1 max P.8 mmHg SV(LVOT): 52.8 ml LV V1 mean P.3 mmHg LV V1 max: 109.6 cm/sec LV V1 mean: 72.4 cm/sec LV V1 VTI: 19.1 cm PA V2 max: 108.5 cm/sec Med Peak E' Rohini: 8.0 cm/sec PA max P.7 mmHg PA V2 mean: 72.6 cm/sec PA mean P.3 mmHg PA V2 VTI: 19.5 cm Lat Peak E' Rohini: 7.7 cm/sec BRIT Index (I,D): 2.2 BRIT Index (V,D): 2.0 Dimensionless Index: 0.99 E/e' (avg): 10.1 E/e' (lat): 10.3 E/e' (sept): 9.9 Procedure Note Neri Gloria MD - 07/26/2023 Echocardiographic Report Interpretation Summary A complete two-dimensional transthoracic echocardiogram was performed (2D,M- mode, Spectral and color Doppler). There is no comparison studyavailable. Normal left ventricular size and systolic function. LV ejection fraction calculated using the bi-plane method of disks is 62%. The right ventricle is normal in size and function. Unable to estimate RVSP due to lack of TR visualization. There is no pericardial effusion. Left Ventricle: Normal left ventricular size and systolic function. There is normal leftventricular wall thickness. LV ejection fraction calculated using thebi-plane method of disks is 62 %. I WMSI = 1.00 % Normal = 100 Normal global longitudinal peak systolic value X - Cannot 1 - Normal 2 - 3 - Akinetic 4 - Dyskinetic Interpret Hypokinetic 5 - Aneurysmal 3D imaginD volumes were not performed in this study. Cardiac Mechanics/Speckle Tracking Imaging: Normal global longitudinal peak systolic value. Strain Imaging wasperformed; GLPS avg = -23.7%. Diastology: Normal diastolic function. Right Ventricle: The right ventricle is normal in size and function. Normal RV systolicfunction using TAPSE criteria. Atria: The left atrial size is normal. Right atrial size is normal. Mitral Valve: Mild thickening changes are noted. Tricuspid Valve: The tricuspid valve is not well visualized, but is grossly normal. Unableto estimate RVSP due to lack of TR visualization. Aortic Valve: The aortic valve opens well. Pulmonic Valve: The pulmonic valve is not well visualized. Great Vessels: The aortic root is not well visualized but is probably normal size. Theinferior vena cava demonstrates normal size and normal respiratoryvariation. Pericardium/Pleural: There is no pericardial effusion. Preliminary Reviewer Preliminary Interpretation: Ama Norris MD. MMode/2D Measurements IVSd: 0.57 cmLVIDd: 4.0 cm LVIDs: 2.5 cm LVPWd: 0.57 cm FS: 37.3 %Ao root diam: 2.8 cm Ao root area: 6.0 cm2 LA dimension: 2.1 cm LVOT diam: 1.9 cmEDV(MOD-A4C): 49.6 ml ESV(MOD-A4C): 18.5 ml LVOT area: 2.8 cm2EF(MOD-A4C): 62.7 % EDV(MOD-A2C): 56.6 ml ESV(MOD-A2C): 21.4 mlEDV(MOD-bp): 53.8 ml EF(MOD-A2C): 62.1 %ESV(MOD-bp): 20.2 ml EF(MOD-bp): 62.4 % LAV(MOD-A2C): 18.2 mlEDV (MOD-bp) Index: 39.1 ml/m2 LAV(MOD-A4C): 20.5 ml LAV(MOD-bp): 20.2 ml LAV(MOD-bp) Indexed: 14.7 ml/m2 ESV (MOD-bp) Index: 14.7 ml/m2RWT: 0.29 cm TAPSE (>1.6): 1.9 cm Doppler Measurements MV E max rohini: 79.4 cm/secMV V2 max: 96.9 cm/sec MV A max rohini: 74.9 cm/secMV max P.8 mmHg MV E/A: 1.1MV V2 mean: 54.1 cm/sec MV mean P.3 mmHg MV V2 VTI: 23.1 cm MVA(VTI): 2.3 cm2 MV P1/2t max rohini: 79.4 cm/secAo V2 max: 111.1 cm/sec MV P1/2t: 59.5 msecAo max P.9 mmHg Ao V2 mean: 71.9 cm/sec MVA(P1/2t): 3.7 cm2Ao mean P.3 mmHg MV dec slope: 390.5 cm/sec2Ao V2 VTI: 17.8 cm BRIT(I,D): 3.0 cm2 BRIT(V,D): 2.7 cm2 LV V1 max P.8 mmHgSV(LVOT): 52.8 ml LV V1 mean P.3 mmHg LV V1 max: 109.6 cm/sec LV V1 mean: 72.4 cm/sec LV V1 VTI: 19.1 cm PA V2 max: 108.5 cm/secMed Peak E' Rohini: 8.0 cm/sec PA max P.7 mmHg PA V2 mean: 72.6 cm/sec PA mean P.3 mmHg PA V2 VTI: 19.5 cm Lat Peak E' Rohini: 7.7 cm/secAVA Index (I,D): 2.2 BRIT Index (V,D): 2.0Dimensionless Index: 0.99 E/e' (avg): 10.1E/e' (lat): 10.3 E/e' (sept): 9.9 Joma Uthup [employer] CV ECHO ORDERABLES ISCV * PETCT Contrast Enhanced Initial Treatment Strategy (07/11/2023 3:30 PM CDT) Anatomical Region Laterality Modality Whole Body Positron Emissio n Tomography (PET) 07/14/2023 4:05 PM CDT Impressions 07/14/2023 4:11 PM CDT Impression: (Actionable Findings) 1. Enhancing, hypermetabolic right breast mass consistent with breast cancer. 2. Small, asymmetric right axillary lymphadenopathy with mild hypermetabolic activity also consistent with triny metastases. 3. Mild sinusitis. 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 Technique: 10.8 mCi 18F-FDG, IV, LeftAC . Patient scanned from the top of the skull to the proximal thighs using iv contrast. To allow for distribution and uptake of radiotracer, the patient was asked to rest quietly for approximately 60-90 minutes. PET/CT imaging was performed. CT scanning was done for attenuation correction, image registration, and diagnosis with scan parameters optimized to minimize radiation exposure to the patient. SUV measurements are reported as maximum SUV based on body weight unless otherwise specified. Findings: Head and Neck: Physiologic activity in the brain. Small fluid in bilateral maxillary sinuses image 18 series 3. No lymphadenopathy in the neck. Chest: Physiologic activity in the mediastinum. Lungs are clear. Bilateral breast implants. Enhancing right breast mass measuring 2.4 x 5 cm shows SUV max 7.4 image 74. There is small right axillary lymphadenopathy for example measuring 0.6 x 1 cm, SUV max 3 image 61. Abdomen and Pelvis: Physiological acitivty in the kidneys, ureters, bladder. The liver, pancreas, spleen, adrenals are unremarkable. No abdominal lymphadenopathy. Musculoskeletal: No lytic, sclerotic, or hypermetabolic bone metastases. 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 Technique: 10.8 mCi 18F-FDG, IV, LeftAC . Patient scanned from the top of the skull to the proximal thighs usingiv contrast. To allow for distribution and uptake of radiotracer, thepatient was asked to rest quietly for approximately 60-90 minutes. PET/CTimaging was performed. CT scanning was done for attenuation correction,image registration, and diagnosis with scan parameters optimized tominimize radiation exposure to the patient. SUV measurements are reportedas maximum SUV based on body weight unless otherwise specified. Findings: Head and Neck: Physiologic activity in the brain. Small fluid in bilateralmaxillary sinuses image 18 series 3. No lymphadenopathy in the neck. Chest: Physiologic activity in the mediastinum. Lungs are clear.Bilateral breast implants. Enhancing right breast mass measuring 2.4 x 5cm shows SUV max 7.4 image 74. There is small right axillarylymphadenopathy for example measuring 0.6 x 1 cm, SUV max 3 image 61. Abdomen and Pelvis: Physiological acitivty in the kidneys, ureters,bladder. The liver, pancreas, spleen, adrenals are unremarkable. No abdominal lymphadenopathy. Musculoskeletal: No lytic, sclerotic, or hypermetabolic bone metastases. IMPRESSION: Impression: (Actionable Findings) 1. Enhancing, hypermetabolic right breast mass consistent with breastcancer. 2. Small, asymmetric right axillary lymphadenopathy with mildhypermetabolic activity also consistent with triny metastases. 3. Mild sinusitis. Recommendation: None [facility] [place] PETCT ORDER ROSALINDA * Post Procedure Mammogram Right (07/08/2023 12:13 PM CDT) Anatomical Region Laterality Modality Breast Left Mammography 07/08/2023 12:1 7 PM CDT Narrative 07/08/2023 12:17 PM CDT Examination: Post Procedure Mammogram Right 07/08/2023. Clinical Indication: Patient is a 52 years old female and is seen for post procedure mammogram. Findings: See Ultrasound-guided biopsy report done same date. Procedure Note Gaby Zaidi MD - 07/08/2023 Examination: Post Procedure Mammogram Right 07/08/2023. Clinical Indication: Patient is a 52 years old female and is seen forpost procedure mammogram. Findings: See Ultrasound-guided biopsy report done same date. [place] MAMMOGRAPHY ORDERABLES * (ABNORMAL) US Head Neck Soft Tissue (07/08/2023 11:58 AM CDT) Anatomical Region Laterality Modality Head, Neck Ultrasound 07/08/2023 12:1 6 PM CDT Impressions 07/08/2023 12:16 PM CDT Palpable malignancy in the right breast measuring 8.3 cm in maximal dimension. Please note that tumor size is best delineated sonographically. No clip markers identified within the malignancy. A clip marker will be placed during today's visit, please refer to dedicated separate report. Right axillary adenopathy extending to level III. Given the proximity of the index axillary level 3 lymph node to adjacent vasculature, biopsy of the index axillary level 1 lymph node will be performed at this time. Please refer to dedicated separate report. BI-RADS Category 6: Known Biopsy Proven Malignancy Narrative 07/08/2023 12:16 PM CDT CLINICAL INDICATION: Patient is a 52 year old female and is seen for breast cancer FILMS COMPARED The present examination has been compared to prior imaging studies performed at an outside location on 05/22/2023, and at [facility] on 07/08/2023. TECHNIQUE: Images were obtained in multiple scanning planes. Real-time sonographic imaging of both breasts (including all 4 quadrants and retroareolar region) was performed. Real time sonographic imaging of bilateral axilla was performed. Real-time sonographic imaging of the right regional triny basins including ultrasound of the chest/mediastinum to evaluate the axillary (level I,II,III) and internal mammary regions was performed. FINDINGS: The known malignancy in the right breast at 10:00, 4 cm from the nipple appears is a palpable, irregular, mixed echogenicity mass with internal calcifications measuring 8.3 x 6.2 x 1.8 cm. Disease extent is best delineated sonographically. No additional suspicious findings are demonstrated in either breast. A total of 11 prominent right axillary level 1 lymph nodes are identified. The index lymph node measures 1.5 x 1.2 x 0.7 cm. A total of 5 prominent right axillary level 2 lymph nodes are identified. The index axillary level 2 lymph node measures 0.6 x 0.4 x 0.3 cm. A total of 3 indeterminate right axillary level 3 lymph node is identified measuring 0.4 x 0.3 x 0.2 cm. No suspicious right internal mammary or supraclavicular adenopathy is noted. The visualized left axillary triny basin is within normal limits. Procedure Note Gaby Zaidi MD - 07/08/2023 CLINICAL INDICATION: Patient is a 52 year old female and is seen for breast cancer FILMS COMPARED The present examination has been compared to prior imaging studiesperformed at an outside location on 05/22/2023, and at [facility] on 07/08/2023. TECHNIQUE: Images were obtained in multiple scanning planes. Real-time sonographic imaging of both breasts (including all 4 quadrantsand retroareolar region) was performed. Real time sonographic imaging ofbilateral axilla was performed. Real-time sonographic imaging of the right regionalnodal basins including ultrasound of the chest/mediastinum to evaluate theaxillary (level I,II,III) and internal mammary regions was performed. FINDINGS: The known malignancy in the right breast at 10:00, 4 cm from the nippleappears is a palpable, irregular, mixed echogenicity mass with internalcalcifications measuring 8.3 x 6.2 x 1.8 cm. Disease extent is best delineatedsonographically. No additional suspicious findings are demonstrated in either breast. A total of 11 prominent right axillary level 1 lymph nodes are identified.The index lymph node measures 1.5 x 1.2 x 0.7 cm. A total of 5 prominentright axillary level 2 lymph nodes are identified. The index axillary level 2lymph node measures 0.6 x 0.4 x 0.3 cm. A total of 3 indeterminate rightaxillary level 3 lymph node is identified measuring 0.4 x 0.3 x 0.2 cm. No suspicious right internal mammary or supraclavicular adenopathy isnoted. The visualized left axillary triny basin is within normal limits. IMPRESSION: Palpable malignancy in the right breast measuring 8.3 cm in maximaldimension. Please note that tumor size is best delineated sonographically. No clipmarkers identified within the malignancy. A clip marker will be placed duringtoday's visit, please refer to dedicated separate report. Right axillary adenopathy extending to level III. Given the proximity ofthe index axillary level 3 lymph node to adjacent vasculature, biopsy of theindex axillary level 1 lymph node will be performed at this time. Please referto dedicated separate report. BI-RADS Category 6: Known Biopsy Proven Malignancy Little [place] US ORDERABL ES * US Guided Breast Clip Placement Right (07/08/2023 11:58 AM CDT) Anatomical Region Laterality Modality Breast Right Ultrasound 07/08/2023 12:1 5 PM CDT Addenda Addendum by Gaby Zaidi MD on 07/10/2023 7:33 AM CDT ADDENDED REPORT 07/10/2023 Addendum: Final cytology shows metastatic adenocarcinoma. the patient has a know right breast malignancy. Dr. Tracy was notified of these results via institutional email at the time of this addendum. Diagnosis Lymph node(s), right, axillary level I, fine needle aspiration: METASTATIC ADENOCARCINOMA Impressions 07/08/2023 12:15 PM CDT 1. Technically successful ultrasound guided biopsy of the right axillary level I lymph node. Preliminary cytology yielding metastatic carcinoma. An addendum will be issued once the final cytology result is available and reviewed. 2. Technically successful ultrasound guided Tum[place] Q shaped clip marker placement into the known right breast malignancy. Narrative 07/08/2023 12:15 PM CDT Examination: Right Breast Ultrasound Guided Needle Biopsy with Marker Clip Placement and Post Biopsy Mammograms, 07/08/2023. Clinical History: 52-year-old woman with an abnormal breast ultrasound presenting for biopsy. Indication: Suspicious finding(s) on recent breast ultrasound. Comparison: The present examination has been compared to a prior imaging study performed at [facility] on 07/08/2023. Primary Proceduralist: Dr. Gaby Zaidi Supervisor Webbing(s): None Technique: Ultrasound imaging of the right breast was performed. The skin of the breast(s) was cleansed with chlorhexidine. Local anesthesia was achieved with a total of 10 mL 1% lidocaine. Procedure: The procedure and its risks, benefits, and alternatives were explained in detail to the patient, who agreed to proceed and signed an informed consent form. All questions were answered. The patient was brought to the ultrasound suite and was placed supine on the table. Site 1: The lesion in question was identified in the right axillary level I region. The biopsy needle was advanced to the targeted lesion. Biopsy was performed with a 21-gauge needle, and 1 sampling pass was performed. Site 2: The lesion in question was identified in the right breast at 10 o'clock, 4 cm from the nipple. A [place] Q shaped clip was deployed into the mass. Specimen Removed: Yes Immediate Complications: None Post-procedure diagnosis: Breast cancer Disposition: The patient was discharged from Breast Imaging to home in good condition. Estimated Blood Loss: Minimal Procedure Note Gaby Zaidi MD - 07/08/2023 Examination: Right Breast Ultrasound Guided Needle Biopsy with MarkerClip Placement and Post Biopsy Mammograms, 07/08/2023. Clinical History: 52-year-old woman with an abnormal breast ultrasound presenting for biopsy. Indication: Suspicious finding(s) on recent breast ultrasound. Comparison: The present examination has been compared to a [facility]. Primary Proceduralist: Dr. Gaby Zaidi Supervisor Webbing(s): None Technique: Ultrasound imaging of the right breast was performed. The skinof the breast(s) was cleansed with chlorhexidine. Local anesthesia was achievedwith a total of 10 mL 1% lidocaine. Procedure: The procedure and its risks, benefits, and alternatives were explained in detail to the patient, who agreed to proceed and signed aninformed consent form. All questions were answered. The patient was brought to the ultrasound suite and was placed supine onthe table. Site 1: The lesion in question was identified in the right axillary levelI region. The biopsy needle was advanced to the targeted lesion. Biopsywas performed with a 21-gauge needle, and 1 sampling pass was performed. Site 2: The lesion in question was identified in the right breast at 10o'clock, 4 cm from the nipple. A [place] Q shaped clip was deployed into the mass. Specimen Removed: Yes Immediate Complications: None Post-procedure diagnosis: Breast cancer Disposition: The patient was discharged from Breast Imaging to home ingood condition. Estimated Blood Loss: Minimal IMPRESSION: 1. Technically successful ultrasound guided biopsy of the right axillarylevel I lymph node. Preliminary cytology yielding metastatic carcinoma. Anaddendum will be issued once the final cytology result is available and reviewed. 2. Technically successful ultrasound guided Tum[place] Q shaped clip marker placement into the known right breast malignancy. Little [place] [facility] US ORDERABL ES * (ABNORMAL) US Breast Complete - Bilateral (07/08/2023 11:58 AM CDT) Anatomical Region Laterality Modality Breast Bilateral Ultrasound 07/08/2023 12:1 6 PM CDT Impressions 07/08/2023 12:16 PM CDT Palpable malignancy in the right breast measuring 8.3 cm in maximal dimension. Please note that tumor size is best delineated sonographically. No clip markers identified within the malignancy. A clip marker will be placed during today's visit, please refer to dedicated separate report. Right axillary adenopathy extending to level III. Given the proximity of the index axillary level 3 lymph node to adjacent vasculature, biopsy of the index axillary level 1 lymph node will be performed at this time. Please refer to dedicated separate report. BI-RADS Category 6: Known Biopsy Proven Malignancy Narrative 07/08/2023 12:16 PM CDT CLINICAL INDICATION: Patient is a 52 year old female and is seen for breast cancer FILMS COMPARED The present examination has been compared to prior imaging studies performed at an outside location on 05/22/2023, and at [facility] on 07/08/2023. TECHNIQUE: Images were obtained in multiple scanning planes. Real-time sonographic imaging of both breasts (including all 4 quadrants and retroareolar region) was performed. Real time sonographic imaging of bilateral axilla was performed. Real-time sonographic imaging of the right regional triny basins including ultrasound of the chest/mediastinum to evaluate the axillary (level I,II,III) and internal mammary regions was performed. FINDINGS: The known malignancy in the right breast at 10:00, 4 cm from the nipple appears is a palpable, irregular, mixed echogenicity mass with internal calcifications measuring 8.3 x 6.2 x 1.8 cm. Disease extent is best delineated sonographically. No additional suspicious findings are demonstrated in either breast. A total of 11 prominent right axillary level 1 lymph nodes are identified. The index lymph node measures 1.5 x 1.2 x 0.7 cm. A total of 5 prominent right axillary level 2 lymph nodes are identified. The index axillary level 2 lymph node measures 0.6 x 0.4 x 0.3 cm. A total of 3 indeterminate right axillary level 3 lymph node is identified measuring 0.4 x 0.3 x 0.2 cm. No suspicious right internal mammary or supraclavicular adenopathy is noted. The visualized left axillary triny basin is within normal limits. Procedure Note Gaby Zaidi MD - 07/08/2023 CLINICAL INDICATION: Patient is a 52 year old female and is seen for breast cancer FILMS COMPARED The present examination has been compared to prior imaging studiesperformed at an outside location on 05/22/2023, and at [facility] on 07/08/2023. TECHNIQUE: Images were obtained in multiple scanning planes. Real-time sonographic imaging of both breasts (including all 4 quadrantsand retroareolar region) was performed. Real time sonographic imaging ofbilateral axilla was performed. Real-time sonographic imaging of the right regionalnodal basins including ultrasound of the chest/mediastinum to evaluate theaxillary (level I,II,III) and internal mammary regions was performed. FINDINGS: The known malignancy in the right breast at 10:00, 4 cm from the nippleappears is a palpable, irregular, mixed echogenicity mass with internalcalcifications measuring 8.3 x 6.2 x 1.8 cm. Disease extent is best delineatedsonographically. No additional suspicious findings are demonstrated in either breast. A total of 11 prominent right axillary level 1 lymph nodes are identified.The index lymph node measures 1.5 x 1.2 x 0.7 cm. A total of 5 prominentright axillary level 2 lymph nodes are identified. The index axillary level 2lymph node measures 0.6 x 0.4 x 0.3 cm. A total of 3 indeterminate rightaxillary level 3 lymph node is identified measuring 0.4 x 0.3 x 0.2 cm. No suspicious right internal mammary or supraclavicular adenopathy isnoted. The visualized left axillary triny basin is within normal limits. IMPRESSION: Palpable malignancy in the right breast measuring 8.3 cm in maximaldimension. Please note that tumor size is best delineated sonographically. No clipmarkers identified within the malignancy. A clip marker will be placed duringtoday's visit, please refer to dedicated separate report. Right axillary adenopathy extending to level III. Given the proximity ofthe index axillary level 3 lymph node to adjacent vasculature, biopsy of theindex axillary level 1 lymph node will be performed at this time. Please referto dedicated separate report. BI-RADS Category 6: Known Biopsy Proven Malignancy Little MODOY US ORDERABL ES * US Guided Axillary Lymph Node FNA - Right for Breast Ultrasound (07/08/2023 11:58 AM CDT) Anatomical Region Laterality Modality Lymph Node Right Ultrasound 07/08/2023 12:1 5 PM CDT Addenda Addendum by Gaby Zaidi MD on 07/10/2023 7:33 AM CDT ADDENDED REPORT 07/10/2023 Addendum: Final cytology shows metastatic adenocarcinoma. the patient has a know right breast malignancy. Dr. Tracy was notified of these results via institutional email at the time of this addendum. Diagnosis Lymph node(s), right, axillary level I, fine needle aspiration: METASTATIC ADENOCARCINOMA Impressions 07/08/2023 12:15 PM CDT 1. Technically successful ultrasound guided biopsy of the right axillary level I lymph node. Preliminary cytology yielding metastatic carcinoma. An addendum will be issued once the final cytology result is available and reviewed. 2. Technically successful ultrasound guided Tumark Q shaped clip marker placement into the known right breast malignancy. Narrative 07/08/2023 12:15 PM CDT Examination: Right Breast Ultrasound Guided Needle Biopsy with Marker Clip Placement and Post Biopsy Mammograms, 07/08/2023. Clinical History: 52-year-old woman with an abnormal breast ultrasound presenting for biopsy. Indication: Suspicious finding(s) on recent breast ultrasound. Comparison: The present examination has been compared to a prior imaging study performed at [facility] on 07/08/2023. Primary Proceduralist: Dr. Gaby Zaidi Supervisor Webbing(s): None Technique: Ultrasound imaging of the right breast was performed. The skin of the breast(s) was cleansed with chlorhexidine. Local anesthesia was achieved with a total of 10 mL 1% lidocaine. Procedure: The procedure and its risks, benefits, and alternatives were explained in detail to the patient, who agreed to proceed and signed an informed consent form. All questions were answered. The patient was brought to the ultrasound suite and was placed supine on the table. Site 1: The lesion in question was identified in the right axillary level I region. The biopsy needle was advanced to the targeted lesion. Biopsy was performed with a 21-gauge needle, and 1 sampling pass was performed. Site 2: The lesion in question was identified in the right breast at 10 o'clock, 4 cm from the nipple. A Tumark Q shaped clip was deployed into the mass. Specimen Removed: Yes Immediate Complications: None Post-procedure diagnosis: Breast cancer Disposition: The patient was discharged from Breast Imaging to home in good condition. Estimated Blood Loss: Minimal Procedure Note Gaby Zaidi MD - 07/08/2023 Examination: Right Breast Ultrasound Guided Needle Biopsy with MarkerClip Placement and Post Biopsy Mammograms, 07/08/2023. Clinical History: 52-year-old woman with an abnormal breast ultrasound presenting for biopsy. Indication: Suspicious finding(s) on recent breast ultrasound. Comparison: The present examination has been compared to a prior imagingstudy performed at [facility] on 07/08/2023. Primary Proceduralist: Dr. Gaby Zaidi Supervisor Webbing(s): None Technique: Ultrasound imaging of the right breast was performed. The skinof the breast(s) was cleansed with chlorhexidine. Local anesthesia was achievedwith a total of 10 mL 1% lidocaine. Procedure: The procedure and its risks, benefits, and alternatives were explained in detail to the patient, who agreed to proceed and signed aninformed consent form. All questions were answered. The patient was brought to the ultrasound suite and was placed supine onthe table. Site 1: The lesion in question was identified in the right axillary levelI region. The biopsy needle was advanced to the targeted lesion. Biopsywas performed with a 21-gauge needle, and 1 sampling pass was performed. Site 2: The lesion in question was identified in the right breast at 10o'clock, 4 cm from the nipple. A Tumark Q shaped clip was deployed into the mass. Specimen Removed: Yes Immediate Complications: None Post-procedure diagnosis: Breast cancer Disposition: The patient was discharged from Breast Imaging to home ingood condition. Estimated Blood Loss: Minimal IMPRESSION: 1. Technically successful ultrasound guided biopsy of the right axillarylevel I lymph node. Preliminary cytology yielding metastatic carcinoma. Anaddendum will be issued once the final cytology result is available and reviewed. 2. Technically successful ultrasound guided Tumark Q shaped clip marker placement into the known right breast malignancy. Little MOODY US ORDERABL ES * (ABNORMAL) Cytology Image-Guided FNA Interpretation (07/08/2023 10:56 AM CDT) Gross Description Specimens procured: 2 Diff Quik; 4 Pap Stain Slides 10 ml, slightly cloudy bloody fluid in RPMI 1 Cell Block Date/Time Placed in Formalin: 07/08/23 12:10 PM Size: 1.5 cm Immediate assessment for specimen adequacy was made x1 by Dr. Merino. 07/09/2023 11:30 AM CDT [facility] Immediate Assessment Adequate cellularity, favor malignant 07/09/2023 11:30 AM CDT [facility] Major Classification MALIGNANT(A) 07/09/2023 11:30 AM CDT [facility] Diagnosis Lymph node(s), right, axillary level I, fine needle aspiration: METASTATIC ADENOCARCINOMA 07/09/2023 11:30 AM CDT [facility] Retained/Biomark er Testing SR: 6 S, 1 CB, Biomarker Testing: MDL CB: > 300 MDL PAP: 3 S MDL DQ: 0 S FISH DQ: 0 S 07/09/2023 11:30 AM CDT [facility] Informational Points Some tests reported here may have been developed and performance characteristics determined by [facility] Pathology and Laboratory Medicine. These tests have not been specifically cleared or approved by the U.S. Food and Drug Administration. This case was screened at [facility], [address] [place] [id number]. 07/09/2023 11:30 AM CDT [facility] Specimen obtained by fine needle aspiration procedure (specimen) (Lymph Node(s), Right, Axillary Level I) 07/08/2023 10:56 AM CDT 07/08/2023 11:41 AM CDT Little GOLDEN LAB CYTOLOGY OR DERABLES [facility] [address] [place] [id number], [place] * (ABNORMAL) Mammography Digital Diagnostic Bilateral with Vivek (07/08/2023 8:49 AM CDT) Anatomical Region Laterality Modality Breast Bilateral Mammography 07/08/2023 11:0 1 AM CDT Addenda Addendum by Gaby Zaidi MD on 07/08/2023 11:11 AM CDT ADDENDED REPORT 07/08/2023 Addendum: Please note that the known malignancy resides in the upper outer quadrant of the right breast at roughly 10-11 o'clock, 4 cm from the nipple. BI-RADS Category 6: Known Biopsy Proven Malignancy Impressions 07/08/2023 11:01 AM CDT Area of architectural distortion in the right breast is known biopsy-proven malignancy. Ultrasound is recommended for staging. BI-RADS Category 6: Known Biopsy Proven Malignancy Narrative 07/08/2023 11:01 AM CDT CLINICAL INDICATION: Patient is a 52 year old female and is seen for breast cancer MAMMO DIGITAL DIAGNOSTIC BILATERAL W VIVEK Digital Mammogram evaluated with Computer Aided Detection (CAD). COMPARISON: The present examination has been compared to prior imaging studies performed at an outside location on 11/11/2020, 03/02/2022 and 05/22/2023. FINDINGS: The breasts are extremely dense, which lowers the sensitivity of mammography. There is an area of architectural distortion measuring 3.8 x 3.8 x 3.7 centimeters with associated fine pleomorphic calcifications with regional distribution and palpable finding in the right breast. Ultrasound-guided biopsy performed at outside institution on June 11, 2023 yielded invasive ductal carcinoma. The calcifications are confined to the area of distortion. No clip marker was placed at the time of biopsy. In the left breast, no dominant mass, distortion, or suspicious calcifications are identified. Tomosynthesis performed in CC and MLO projections. Procedure Note Gaby Zaidi MD - 07/08/2023 CLINICAL INDICATION: Patient is a 52 year old female and is seen for breast cancer MAMMO DIGITAL DIAGNOSTIC BILATERAL W VIVEK Digital Mammogram evaluated with Computer Aided Detection (CAD). COMPARISON: The present examination has been compared to prior imaging studiesperformed at an outside location on 11/11/2020, 03/02/2022 and 05/22/2023. FINDINGS: The breasts are extremely dense, which lowers the sensitivity ofmammography. There is an area of architectural distortion measuring 3.8 x 3.8 x 3.7 centimeters with associated fine pleomorphic calcifications withregional distribution and palpable finding in the right breast. Ultrasound-guidedbiopsy performed at outside institution on June 11, 2023 yielded invasiveductal carcinoma. The calcifications are confined to the area of distortion. Noclip marker was placed at the time of biopsy. In the left breast, no dominant mass, distortion, or suspiciouscalcifications are identified. Tomosynthesis performed in CC and MLO projections. IMPRESSION: Area of architectural distortion in the right breast is knownbiopsy-proven malignancy. Ultrasound is recommended for staging. BI-RADS Category 6: Known Biopsy Proven Malignancy Little GOLDEN [facility]MEun MAMMOGRAPHY ORDERABLES * CG HER2 FISH Interpretation and Report (06/11/2023 12:54 PM CDT) 06/11/2023 12:5 4 PM CDT Prosper Gandhi MD, [facility] HP CYTOGENETICS (HP CG) Performing Organization Address City/[facility]/ZIP Co de Phone Number [facility] Unless otherwise noted, all lab tests performed by: Division of Pathology and Laboratory Medicine [address] [place] [phone] * Cytogenetics Specimen Collection -FFPE (06/11/2023 12:54 PM CDT) Pathologist Clarita Lewis Link [id number] [facility] Cytogenetics (Received) Yes [facility] FFPE 06/11/2023 12:5 4 PM CDT 06/26/2023 12:54 PM CDT Prosper Gandhi MD, [facility] HP CG NONBLOOD C OLLECTIONS Performing Organization Address City/[facility]/ZIP Co de Phone Number [facility] Unless otherwise noted, all lab tests performed by: Division of Pathology and Laboratory Medicine [address] [place] [phone] * Pathology Outside Interpretation (06/11/2023) Materials Received Accession#, Stained, Block, Unstained Collected Received A. [id number], 7 SS, 1 BLOCKS, 0 USS 06/11/2023 06/21/2023 06/25/2023 11:[address] [facility] Diagnosis Seven outside slides ([id number]): Right breast, ultrasound-guided needle core biopsy: INVASIVE DUCTAL CARCINOMA, INTERMEDIATE NUCLEAR GRADE, TIFFANIE HISTOLOGIC GRADE 2. 06/25/2023 11:18 AM CDT [facility] Comment Submitted immunostains show that the invasive carcinoma is low positive for estrogen receptor (5%, weak) and equivocal for HER2 (2+), with a Ki-67 proliferation index of 25%. A submitted progesterone receptor is negative in the carcinoma; however, the result is considered uninterpretable due to lack of staining in the internal control elements. A submitted p63 immunostain is consistent with the diagnosis. TRPS1 immunostain performed here is positive in the tumor cells. HER2 FISH will be submitted. Technical Charge Note: 1 IHC 06/25/2023 11:18 AM CDT [facility] Biomarker Block(s) Single block 06/25/2023 11:18 AM CDT [facility] Disclaimer "Some tests reported here may have been developed and performance characteristics determined by [facility] Pathology and Laboratory Medicine. These tests have not been specifically cleared or approved by the U.S. Food and Drug Administration. If applicable, controls were reviewed and showed appropriate reactivity." 06/25/2023 11:18 AM CDT [facility] Tissue specimen (specimen) 06/11/2023 06/21/2023 10:00 AM CDT Molly Escobar MD LAB PATHOLOGY ORDERA CRISTAL [facility] [place] [address], [place] after 06/02/2023 Advance Directives * Full Code (Latest Code Status on File) Date Activated Date Inactivated Comments 02/27/2024 10:16 PM 02/28/2024 4:03 PM Care Teams Boot Liner Maker Relationship Specialty Start Date End Date Yesenia Tracy MD [address] [place] [id number] [email or web address] PCP - General Breast Surgery 06/18/23 Cheyanne Crawford MD [address] [place] [address] [email or web address] PCP - External Referring Obstetrics/Gynecology 06/18/23 Amber Henry MD [address] [place] [phone] [email or web address] Consulting Physician Breast Medical Oncology 07/17/23 Rodolfo Felix MD [address] [place] [phone] [email or web address] Consulting Physician Plastic and Reconstructive Surgery 02/05/24
[2024-06-01] MEDS ORDERED: ONDANSETRON 4 MG/2 ML VIAL ONE (06:59)
[2024-06-01] MEDS ORDERED: METOCLOPRAMIDE 10 MG/2mL INJ ONE (06:59)
[2024-06-01] MEDS ORDERED: NA CHLORIDE 0.9% 1,000 ML ONE ×2 (07:00→08:18)
[2024-06-01] MEDS ORDERED: MORPHINE 4 MG/ML SYR ONE (07:00)
[2024-06-01] MEDS ORDERED: NA CHLORIDE 0.9% 500 ML ONE (07:00)
[2024-06-01 07:10] LABS: Absolute Lymphocytes (CBC) 0.2 K/uL (0.7-4.9); Absolute Monocytes 2.3 K/uL (0.1-1.3); Absolute Neutrophil 12.1 K/uL (1.8-8.0); Basophils % 0.1 % (0-1.3); Hematocrit 43.7 % (36.0-45.0); Hemoglobin 14.3 g/dL (12.0-15.0); Lymphocytes % 1.6 % (15.3-44.8); MCH 33.5 pg (27.0-35.0); MCHC 32.7 g/dL (32.0-36.0); MCV 102.4 fL (80-100); MPV 9.1 fL (7.6-11.3); Monocytes % 15.5 % (3.3-12.3); Neutrophils % 82.8 % (41.7-73.7); Nucleated Red Blood Cells % 0.1 % (0-0); Platelets 255 thou/uL (152-406); RBC Red Blood Cell Count 4.26 M/uL (3.86-4.86); Red Cell Distribution Width 15.9 % (12.1-15.2)
[2024-06-01 07:16] LABS: PT Prothrombin Time 11.9 SECONDS (9.4-12.5); PTT, Activated Partial Thromb 26.7 SECONDS (24.3-36.9); Protime INR 1.06
[2024-06-01 07:39] LABS: Albumin 3.9 g/dL (3.4-5.0); Albumin/Globulin Ratio 0.9 (1.1-1.8); Anion Gap 31.8 mEq/L (5.0-15.0); Bilirubin Direct 0.2 mg/dL (0-0.2); Bilirubin Indirect, Calculated 0.6 mg/dL (0.2-0.8); Bilirubin Total 0.8 mg/dL (0.2-1.0); Globulin 4.2 g/dL (2.3-3.5); Magnesium 2.9 mg/dL (1.6-2.4); Potassium 3.8 mEq/L (3.5-5.1); Protein, Total 8.1 g/dL (6.4-8.2); Troponin High Sensitivity 33.2 pg/mL (<58.9)
--- NOTE | 2024-06-01 07:53 | ER ---
Nurse's Notes [facility] Name: Toña Rich Age: 53 yrs Sex: Female : 1970 Arrival Date: 06/01/2024 Time: 06:19 Bed 15 Private MD: Diagnosis: Diabetic ketoacidosis, acute esophagitis, chemotherapy complications, acute renal failure, moderate dehydration Presentation: 06/01 06:43 Chief complaint: Patient states: sore throat x3 weeks. Has been difficult to eat and tm6 drink due to sore throat. Received prescription for viscous lidocaine from [facility], but not helping with sore throat. Currently getting chemo and radiation from [facility]. Coronavirus screen: Vaccine status: Patient reports being unvaccinated. Ebola Screen: Patient negative for fever greater than or equal to 101.5 degrees Fahrenheit, and additional compatible Ebola Virus Disease symptoms Patient denies exposure to infectious person. Patient denies travel to an Ebola-affected area in the 21 days before illness onset. No symptoms or risks identified at this time. Initial Sepsis Screen: Does the patient meet any 2 criteria? HR > 90 bpm. Does the patient have a suspected source of infection? No. Patient's initial sepsis screen is negative. Risk Assessment: Do you want to hurt yourself or someone else? Patient reports no desire to harm self or others. Onset of symptoms was May 11, 2024. 06:43 Method Of Arrival: Wheelchair tm6 06:43 Acuity: ABIDA 3 tm6 Triage Assessment: 06:45 General: Appears in no apparent distress. Behavior is calm, cooperative. Pain: tm6 Complains of pain in throat Pain does not radiate. Pain currently is 3 out of 10 on a pain scale. Pain began 3 weeks ago. EENT: Reports pain in throat when swallowing since 3 weeks ago. Neuro: Level of Consciousness is awake, alert, obeys commands, Oriented to person, place, time, situation. Cardiovascular: Patient's skin is warm and dry. Respiratory: Airway is patent Respiratory effort is even, unlabored, Respiratory pattern is regular, symmetrical. GI: Abdomen is flat, non-distended, Reports anorexia. : No signs and/or symptoms were reported regarding the genitourinary system. Derm: No signs and/or symptoms reported regarding the dermatologic system. Musculoskeletal: No signs and/or symptoms reported regarding the musculoskeletal system. Historical: - Allergies: 06:45 No Known Allergies; tm6 - PMHx: 06:45 breast cancer; neuropathy; tm6 - PSHx: 06:45 breast implants; tm6 - Immunization history:: Client reports having NOT received the Covid vaccine. - Infectious Disease History:: Denies. - Social history:: Smoking status: Patient/guardian denies using tobacco, the patient reports quitting approximately 1 years ago, Patient uses alcohol, on a daily basis. 4-5 beers daily. - Family history:: not pertinent. Screenin:48 [facility] ED Fall Risk Assessment (Adult) History of falling in the last 3 months, tm6 including since admission No falls in past 3 months (0 pts) Confusion or Disorientation No (0 pts) Intoxicated or Sedated No (0 pts) Impaired Gait No (0 pts) Mobility Assist Device Used No (0 pt) Altered Elimination No (0 pt) Score/Fall Risk Level 0 - 2 = Low Risk Oriented to surroundings, Maintained a safe environment, Educated pt \T\ family on fall prevention, incl call for assistance when getting out of bed. Abuse screen: Denies threats or abuse. Denies injuries from another. Nutritional screening: No deficits noted. Tuberculosis screening: No symptoms or risk factors identified. Assessment: 06:48 Reassessment: see triage assessment. GI: No signs and/or symptoms were reported tm6 involving the gastrointestinal system. Abdomen is flat, non-distended. Vital Signs: 06:43 BP 116 / 86; Pulse 112; Resp 19; Temp 98.3(O); Pulse Ox 97% on R/A; Weight 42.18 kg; tm6 Height 5 ft. 0 in. ; Pain 3/10; 08:53 BP 97 / 67; Pulse 102; Resp 15; Pulse Ox 97% ; dd2 09:51 BP 93 / 66; Pulse 102; Resp 15; Pulse Ox 95% ; dd2 06:43 Body Mass Index 18.16 (42.18 kg, 152.4 cm) tm6 06:43 Pain Scale: Adult tm6 [place] Coma Score: 06:57 Eye Response: spontaneous(4). Motor Response: obeys commands(6). Verbal Response: sp4 oriented(5). Total: 15. ED Course: 06:25 Patient arrived in ED. gm2 06:36 Remy Rodriguez MD is Attending Physician. sp4 06:43 João Howard, RN is Primary Nurse. tm6 06:45 Triage completed. tm6 06:45 Arm band placed on right wrist. tm6 06:48 Patient has correct armband on for positive identification. Bed in low position. Call tm6 light in reach. Side rails up X2. Provided Education on: use of call kinsey. Client placed on continuous cardiac and pulse oximetry monitoring. NIBP monitoring applied. Pulse ox on. NIBP on. Door closed. Noise minimized. Warm blanket given. Pillow given. 06:50 First set of blood cultures drawn by me. oe 07:01 Inserted saline lock: 22 gauge in right antecubital area, using aseptic technique. oe Blood collected. Flushed with 10 mL NS. 07:02 BMP Sent. oe 07:02 CBC with Diff Sent. oe 07:02 CPK Sent. oe 07:02 Hepatic Function Sent. oe 07:02 Lipase Sent. oe 07:02 Magnesium Sent. oe 07:02 NT PRO-BNP Sent. oe 07:02 PT-INR Sent. oe 07:03 Ptt, Activated Sent. oe 07:03 Troponin HS Sent. oe 07:05 Second set of blood cultures drawn. oe 07:14 Report given to Sweetie MELO. tm6 07:43 TOÑA ROPER, RN is Primary Nurse. dd2 07:53 initiated a transfer with Nicole from the [facility] transfer center at the request of eb the patient. 08:05 connected the wetland scientist traffic operations manager for [facility] with Dr. Nye for patient transfer eb consultation. 08:[address] given by Dr. Matilda Stone / patient has been accepted to [facility] [id number]/ Dr. Zoran Stone has accepted the patient in transfer/ report to be called to [phone]. 08:46 Urinalysis W/Microscopic Sent. dd2 09:51 No provider procedures requiring assistance completed. Patient transferred, IV remains dd2 in place. Administered Medications: 06:40 Not Given (Physician Discretion): albuterol2.5 mg Inhalation every 20 minutes x3 sp4 06:57 CANCELLED (Physician Discretion): [id number] mg IVP once sp4 06:57 CANCELLED (Physician Discretion): dextromethorphan-guaifenesinliquid 10 mg-100 mg/5 ml sp4 10 ml PO once 07:13 Drug: metoCLOPramide IVP 10 mg IVP once; over 1 to 2 minutes Route: IVP; Site: right tm6 antecubital; 07:13 Drug: NS 0.9% IV 500 ml IV at bolus once Route: IV; Rate: bolus; Site: right tm6 antecubital; 07:14 Drug: NS 0.9% IV 1000 ml IV at 125 ml/hr continuous Route: IV; Rate: 125 ml/hr; Site: tm6 right antecubital; 07:14 Drug: morphine IVP or IV 4 mg IVP once over 4 mins Route: IVP; Infused Over: 4 mins; tm6 Site: right antecubital; 07:14 Drug: Ondansetron IVP 4 mg IVP once; over 2 minutes Route: IVP; Site: right antecubital;tm6 08:45 Drug: Cefepime IVPB 1 grams IVPB at 200 ml/hr once over 30 mins; (mix in NS 100 mL) dd2 Route: IVPB; Rate: 200 ml/hr; Infused Over: 30 mins; Site: right antecubital; 08:46 Drug: Sodium Bicarbonate IVP 1 amp IVP once; (50 mL); equals 50 mEq Route: IVP; Site: dd2 right antecubital; 08:46 Drug: NS 0.9% IV 1000 ml IV at 1 bolus Per protocol; 1000 mL bolus Route: IV; Rate: 1 dd2 bolus; Site: right antecubital; 08:47 Drug: Insulin Regular Human IVP 10 units IVP once {Co-Signature: jame (Sweetie Winchester dd2 RN).} Route: IVP; Site: right antecubital; 09:30 Drug: Insulin Drip - (Insulin Regular Human IVP 100 units, NS 0.9% IV 100 ml) IV at dd2 calculated rate continuous; Standard concentration 1unit/ml; Dose for DKA is 0.1 units/kg/hr {Co-Signature: herman1 (Sweetie Winchester RN).} Route: IV; Rate: calculated rate; Site: right antecubital; 09:55 Drug: NS 0.9% with KCl IV 20 mEq/L 1000 ml IV at 100 ml/hr continuous Route: IV; Rate: dd2 100 ml/hr; Site: right antecubital; Medication: 06:48 VIS not applicable for this client. tm6 Outcome: 07:53 ER care complete, transfer ordered by spJadon 09:51 Transferred by ground [facility] to [facility], Transfer form dd2 completed. X-rays sent w/ patient. 09:51 Condition: stable 09:51 Instructed on the need for transfer, 09:56 Patient left the ED. dd2 Signatures: Teo Guy Elizabeth eb Potepalov, Sergey, MD MD sp4 Radha Mcdowell Tawney, RN RN tm6 TOÑA ROPER RN RN dd2 Sweetie Winchester RN ko1
--- NOTE | 2024-06-01 07:53 | EDPHYS ---
Physician Documentation [facility] Name: Toña Rich Age: 53 yrs Sex: Female : 1970 Arrival Date: 06/01/2024 Time: 06:19 Bed 15 Private MD: ED Physician Remy Rodriguez HPI: 06/01 06:48 This 53 yrs old Unknown Female presents to ER via Wheelchair with complaints of sp4 Nausea/Vomiting, THROAT PAIN, CANCER PATIENT. 06:57 53-year-old female with past medical history of stage III metastatic breast cancer, sp4 last chemotherapy 05/12/2024 MD [facility] in [place], presents with complaint of moderate sore throat and vomiting this morning. Patient states she gets very sore throat after chemotherapy and she is not able to eat or drink.. Historical: - Allergies: 06:45 No Known Allergies; tm6 - PMHx: 06:45 breast cancer; neuropathy; tm6 - PSHx: 06:45 breast implants; tm6 - Immunization history:: Client reports having NOT received the Covid vaccine. - Infectious Disease History:: Denies. - Social history:: Smoking status: Patient/guardian denies using tobacco, the patient reports quitting approximately 1 years ago, Patient uses alcohol, on a daily basis. 4-5 beers daily. - Family history:: not pertinent. ROS: 06:57 Constitutional: Negative for fever, chills, and weight loss, sore throat, vomiting, sp4 positive loss of appetite. 06:57 All other systems are negative, Exam: 06:57 Constitutional: This is a well developed, well nourished patient who is awake, alert, sp4 and in no acute distress. Head/Face: Normocephalic, atraumatic. Eyes: Pupils equal round and reactive to light, extra-ocular motions intact. Lids and lashes normal. Conjunctiva and sclera are not injected. Cornea within normal limits. Periorbital areas with no swelling, redness, or edema. ENT: Nares patent. No nasal discharge, no septal abnormalities noted. Tympanic membranes are normal and external auditory canals are clear. Oropharynx with no redness, bilateral throat irritation Neck: Trachea midline, no thyromegaly or masses palpated, and no cervical lymphadenopathy. Supple, full range of motion without nuchal rigidity, or vertebral point tenderness. Chest/axilla: Normal chest wall appearance and motion. Nontender with no deformity. No lesions are appreciated. Cardiovascular: Regular rate and rhythm with a normal S1 and S2. No gallops, murmurs, or rubs. Normal PMI, no JVD. No pulse deficits. Respiratory: Lungs have equal breath sounds bilaterally, clear to auscultation and percussion. No rales, rhonchi or wheezes noted. No increased work of breathing, no retractions or nasal flaring. Abdomen/GI: Soft, with normal bowel sounds. No distension or tympany. No guarding or rebound. No evidence of tenderness throughout. Back: No spinal tenderness. No costovertebral tenderness. Skin: Warm, dry with normal turgor. Normal color with no rashes, no lesions, and no evidence of cellulitis. MS/ Extremity: Pulses equal, no cyanosis. Neurovascular intact. Full, normal range of motion. Signs of weight loss and physical debility Neuro: Awake and alert, GCS 15, oriented to person, place, time, and situation. Cranial nerves II-XII grossly intact. Motor strength 5/5 in all extremities. Sensory grossly intact. Vital Signs: 06:43 BP 116 / 86; Pulse 112; Resp 19; Temp 98.3(O); Pulse Ox 97% on R/A; Weight 42.18 kg; tm6 Height 5 ft. 0 in. ; Pain 3/10; 08:53 BP 97 / 67; Pulse 102; Resp 15; Pulse Ox 97% ; dd2 09:51 BP 93 / 66; Pulse 102; Resp 15; Pulse Ox 95% ; dd2 06:43 Body Mass Index 18.16 (42.18 kg, 152.4 cm) tm6 06:43 Pain Scale: Adult tm6 Deep Coma Score: 06:57 Eye Response: spontaneous(4). Motor Response: obeys commands(6). Verbal Response: sp4 oriented(5). Total: 15. MDM: 06:37 Patient medically screened. sp4 07:51 Transition of care: After a detail discussion of the patient's case, care is sp4 transferred to Tom Nye MD. 07:53 Differential diagnosis: Nonspecific abd pain, gastritis, pancreatitis, diverticulitis, sp4 viral gastroenteritis, gastroenteritis. Data reviewed: vital signs, nurses notes, lab test result(s). Consideration of Admission/Observation Escalation of care including admission/observation considered. ED course: Patient apparently is in ketoacidosis, secondary to consequences of chemotherapy, I believe new onset diabetes with DKA. Severe dehydration with acute renal failure.. Warrants ICU care insulin infusion and generous IV hydration. Will initiate transfer to MD Jackson. . 06/01 06:36 Order name: BMP; Complete Time: 07:42 sp4 06/01 06:36 Order name: Blood Culture Adult (2) sp4 06/01 06:36 Order name: CBC with Diff; Complete Time: 07:18 sp4 06/01 06:36 Order name: CPK; Complete Time: 07:42 sp4 06/01 06:36 Order name: Hepatic Function; Complete Time: 07:42 sp4 06/01 06:36 Order name: Lipase; Complete Time: 07:42 sp4 06/01 06:36 Order name: Magnesium; Complete Time: 07:42 sp4 06/01 06:36 Order name: NT PRO-BNP; Complete Time: 07:42 sp4 06/01 06:36 Order name: PT-INR; Complete Time: 07:18 sp4 06/01 06:36 Order name: Ptt, Activated; Complete Time: 07:18 sp4 06/01 06:36 Order name: Troponin HS; Complete Time: 07:42 sp4 06/01 07:51 Order name: Urinalysis W/Microscopic sp4 06/01 09:35 Order name: Glucose, Ancillary Testing EDNC 08 06:36 Order name: IV Saline Lock; Complete Time: 07:13 sp4 06/01 06:36 Order name: Labs collected and sent; Complete Time: 07:13 sp4 06/01 06:36 Order name: O2 Per Protocol; Complete Time: 06:53 sp4 06/01 06:36 Order name: O2 Sat Monitoring; Complete Time: 06:53 sp4 Administered Medications: 06:40 Not Given (Physician Discretion): albuterol2.5 mg Inhalation every 20 minutes x3 sp4 06:57 CANCELLED (Physician Discretion): [id number] mg IVP once sp4 06:57 CANCELLED (Physician Discretion): dextromethorphan-guaifenesinliquid 10 mg-100 mg/5 ml sp4 10 ml PO once 07:13 Drug: metoCLOPramide IVP 10 mg IVP once; over 1 to 2 minutes Route: IVP; Site: right tm6 antecubital; 07:13 Drug: NS 0.9% IV 500 ml IV at bolus once Route: IV; Rate: bolus; Site: right tm6 antecubital; 07:14 Drug: NS 0.9% IV 1000 ml IV at 125 ml/hr continuous Route: IV; Rate: 125 ml/hr; Site: tm6 right antecubital; 07:14 Drug: morphine IVP or IV 4 mg IVP once over 4 mins Route: IVP; Infused Over: 4 mins; tm6 Site: right antecubital; 07:14 Drug: Ondansetron IVP 4 mg IVP once; over 2 minutes Route: IVP; Site: right antecubital;tm6 08:45 Drug: Cefepime IVPB 1 grams IVPB at 200 ml/hr once over 30 mins; (mix in NS 100 mL) dd2 Route: IVPB; Rate: 200 ml/hr; Infused Over: 30 mins; Site: right antecubital; 08:46 Drug: Sodium Bicarbonate IVP 1 amp IVP once; (50 mL); equals 50 mEq Route: IVP; Site: dd2 right antecubital; 08:46 Drug: NS 0.9% IV 1000 ml IV at 1 bolus Per protocol; 1000 mL bolus Route: IV; Rate: 1 dd2 bolus; Site: right antecubital; 08:47 Drug: Insulin Regular Human IVP 10 units IVP once {Co-Signature: ko1 (Sweetie Winchester dd2 RN).} Route: IVP; Site: right antecubital; 09:30 Drug: Insulin Drip - (Insulin Regular Human IVP 100 units, NS 0.9% IV 100 ml) IV at dd2 calculated rate continuous; Standard concentration 1unit/ml; Dose for DKA is 0.1 units/kg/hr {Co-Signature: ko1 (Sweetie Winchester RN).} Route: IV; Rate: calculated rate; Site: right antecubital; 09:55 Drug: NS 0.9% with KCl IV 20 mEq/L 1000 ml IV at 100 ml/hr continuous Route: IV; Rate: dd2 100 ml/hr; Site: right antecubital; Disposition Summary: 06/01/24 07:53 Transfer Ordered Notes: Transfer Location: Other Acute Care Facility sp4 Reason: Higher level of care sp4 Condition: Serious sp4 Problem: new sp4 Symptoms: have improved sp4 Accepting Physician: MD [facility] Attending (06/01/24 09:56) dd2 Diagnosis - Diabetic ketoacidosis, acute esophagitis, chemotherapy complications, acute renal sp4 failure, moderate dehydration Forms: - Medication Reconciliation Form sp4 - SBAR form sp4 Critical care time excluding procedures: 07:55 Critical care time: Bedside Care: 36 minutes, Consultation: 12 minutes, Family sp4 Intervention: 12 minutes. Total time: 60 minutes Signatures: Dispatcher [employer] EDRemy Schmidt MD MD sp4 Tom Nye MD MD ec2 João Howard RN RN tm6 TOÑA ROPER RN RN dd2 Sweetie Winchester RN ko1 Corrections: (The following items were deleted from the chart) 06:37 06:37 BASIC METABOLIC PANEL+C.LAB.BRZ ordered. EDMS EDMS 06:37 06:37 BLOOD CULTURE*+BA.LAB.BRZ ordered. EDMS EDMS 06:37 06:37 CBC+H.LAB.BRZ ordered. EDMS EDMS 06:37 06:37 CREATINE PHOSPHOKINASE+C.LAB.BRZ ordered. EDMS EDMS 06:37 06:37 HEPATIC FUNCTION+C.LAB.BRZ ordered. EDMS EDMS 06:37 06:37 LIPASE+C.LAB.BRZ ordered. EDMS EDMS 06:37 06:37 MAGNESIUM+C.LAB.BRZ ordered. EDMS EDMS 06:37 06:37 PROBNP+C.LAB.BRZ ordered. EDMS EDMS 06:37 06:37 PROTIME (+INR)+COAG.LAB.BRZ ordered. EDMS EDMS 06:37 06:37 PTT, ACTIVATED+COAG.LAB.BRZ ordered. EDMS EDMS 06:37 06:37 Troponin High Sensitivity+C.LAB.BRZ ordered. EDMS EDMS 06:37 06:37 Chest Single View+RAD.RAD.BRZ ordered. EDMS EDMS 06:55 06:36 Cardiac monitoring ordered. sp4 tm6 06:55 06:36 EKG - Nurse/Tech ordered. sp4 tm6 06:57 06:36 MethylPrednisoLONE IVP 125 mg IVP once ordered. sp4 sp4 06:57 06:37 Dextromethorphan-Guaifenesin PO Liquid 10 mg-100 mg/5 mL 10 ml PO once ordered. sp4 sp4 07:58 07:52 LIPASE+C.LAB.BRZ ordered. EDMS EDMS 09:56 07:53 MD [facility] Attending sp4 dd2
[2024-06-01] MEDS ORDERED: ALBUTEROL 2.5 MG/3 ML NEB SOL ONE (08:01)
[2024-06-01] MEDS ORDERED: SODIUM BICARB 50 MEQ/50ML VIAL ONE (08:08)
[2024-06-01] MEDS ORDERED: INSULIN REGULAR (HUMAN) 100 UNIT/ML ONE (08:08)
[2024-06-01] MEDS ORDERED: NS KCL 20MEQ 1,000 ML IV ONE (08:09)
[2024-06-01] MEDS ORDERED: NA CHLORIDE 0.9% 100 ML ONE (08:18)
[2024-06-01] MEDS ORDERED: CEFEPIME 1 GM/VIAL ONE (08:18)
[2024-06-01] MEDS ORDERED: INSULIN REGULAR, HUMAN 100 UNIT in NA CHLORIDE 0.9% 100 ML IV SCH (08:30)
[2024-06-01 09:00] LABS: Specific Gravity 1.023 (1.005-1.030); Sqamous Epithelial <5 /HPF (None Seen); Urine Bacteria None Seen /HPF (<20); Urine Bilirubin NEGATIVE (Negative); Urine Blood Trace (Negative); Urine Clarity Clear (Clear); Urine Color Colorless (Yellow); Urine Culture Reflex Order NOT NEEDED; Urine Glucose 4+ (Over) (Negative); Urine Ketones 3+ (Negative); Urine Micro Reflex YN NO BILL MICROSCOPIC; Urine Mucus Slight /HPF (None Seen); Urine Nitrite NEGATIVE (Negative); Urine Protein TRACE (Negative); Urine RBC <5 /HPF (None Seen); Urine Urobilinogen Normal (Normal); Urine WBC <5 /HPF (<5)
[2024-06-01 12:29] VITALS: TEMP 98.3
[2024-06-01 12:31] VITALS: BP 93/66; O2SAT 95
== END 2024-06-01 09:56 ==
LOC: ER 06:19
DX: E11.10 Type 2 diabetes mellitus with ketoacidosis without coma (principal); E86.0 Dehydration; K20.90 Esophagitis, unspecified without bleeding; N17.9 Acute kidney failure, unspecified; T45.1X5A Adverse effect of antineoplastic and immunosuppressive drugs, initial encounter; C50.919 Malignant neoplasm of unspecified site of unspecified female breast; Z98.82 Breast implant status
CPT/HCPCS: 87040 ×2; 85025; 81001; 80048; 36415; 83735; 82550; 85610; 82947; 80076; 85730; 84484; 83690; 83880; 96375; 96374; 99285; J2765; J2405; J7040; J7030 ×2; J0692; J3480; 87205; J7613